=== PATIENT | male | born 1950 | race Caucasian/White ===

== ENCOUNTER 2020-12-13 17:43 | Inpatient (IN) ==
--- OUTSIDE RECORDS SUMMARY | 2020-12-13 17:45 | External Medical Summary | Continuity of Care Document ---
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 , M.D. Refills: 0 Depakote 500 MG Oral Tablet Delayed Release; TAKE 2 TABLETS AT BEDTIME. , M.D. Refills: 0 Losartan Potassium 25 MG Oral Tablet; TAKE 1 TABLET DAILY. , M.D. Refills: 0 Ventolin HFA 108 (90 Base) MCG/ACT Inhal ation Aerosol Solution; INHALE 2 PUFFS EVERY 4 HOURS NEEDED , M.D. 18 GM Inhaler Quantity: 1 Refills: 5 Ipratropium-Albuterol 0.5-2.5 (3) MG/3ML Inhalation Solution; USE 1 UNIT DOSE IN NEBULIZER 4 TIMES DAILY. ORQUIDEA Reyez Start: 25-Feb-2016 Quantity: 1 3 ML Plas Cont (60 P las Conts) Refills: 5 predniSONE 10 MG Oral Tablet; 24 day taper, take as di rected #54 ORQUIDEA Reyez Start: 25-Feb-2016 Quantity: 54 Refills: 0 Procedures History of Shoulder Surgery Status: Comp leted History of Cholecystectomy Status: Compl eted History of Prostatectomy Radical Status: Completed Immunizations Immunizations not documented Family History Father Family history of malignant neoplasm of prostate (V16. 42) (Z80.42) Status: Active Social History - Smoking Status Ex-smoker Plan of Treatment Planned Observations Planned Goals not documented Results No Known Results Results not documented
--- OUTSIDE RECORDS SUMMARY | 2020-12-13 17:45 | External Medical Summary | Continuity of Care Document ---
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 , M.D. Refills: 0 Depakote 500 MG Oral Tablet Delayed Release; TAKE 2 TABLETS AT BEDTIME. , M.D. Refills: 0 Losartan Potassium 25 MG Oral Tablet; TAKE 1 TABLET DAILY. , M.D. Refills: 0 Procedures History of Shoulder Surgery [...]
[2020-12-13] MEDS ORDERED: ONDANSETRON INJ 2 MG/ML 2 ML VIAL IV STA (18:25)
[2020-12-13] MEDS ORDERED: DEXAMETHASONE SOD INJ 10 MG/ML VIAL IV ONE (18:26)
[2020-12-13] MEDS: HYDROmorphone INJ 0.5 MG/0.5 ML SYR IV PRN ×2 (18:35→21:31)
[2020-12-13 18:45] LABS: Basophils # (auto) 0.02 K/uL (0-0.2); Basophils % (auto) 0.1 %; Eosinophils # (auto) 0.06 K/uL (0-0.5); Eosinophils % (auto) 0.4 %; Hematocrit (blood only) 47.7 % (42-52); Hemoglobin 16.7 g/dL (14.0-18.0); Immature Granulocytes # (auto) 0.14 K/uL (0.00-0.02); Lymphocytes # (auto) 2.93 K/uL (1.2-3.4); Lymphocytes % (auto) 20.2 %; Mean Corpuscular Hemoglobin 31.3 pg (25-34); Mean Corpuscular Volume 89.3 fL (80-100); Mean Platelet Volume 9.9 fL (7.4-10.4); Monocytes # (auto) 1.27 K/uL (0.11-0.59); Monocytes % (auto) 8.7 %; Neutrophils % (auto) 69.6 %; Platelet Count 430 K/uL (130-400); RDW Coefficient of Variation 13.2 % (11.5-14.5); Red Blood Count 5.34 M/uL (4.7-6.1); White Blood Count 14.52 K/uL (4.8-10.8)
--- NOTE | 2020-12-13 19:27 | Emergency Department Note ---
Impression & Plan Intractable back pain, Sciatica of right side ED Provider Note INFORMANT: Patient ED PROVIDER(S): Ren Rivera MD CHIEF COMPLAINT: Low back and right leg pain PLAN: Disposition: Admitted Condition: Good Outpatient prescription management: none Referral: None MEDICAL DECISION MAKING: Patient has a known history of a significant L4-L5 disc. Unfortunately despite pain management, injection, and steroids he is getting worse. He is having significant difficulty walking and has right leg weakness. He was given IV Dilaudid and Zofran and felt much better with this. Consultation was made with his orthopedic spine team. They asked for him to be admitted medically and will see him for probable surgery tomorrow. Patient has mild leukocytosis on CBC which is likely from the steroids. The chemistry panel was unremarkable. Consultation was made with the hospitalist service. Case was discussed with Dr. Jarrell Bledsoe. Patient will be admitted for further management. Triage Nursing notes reviewed and agree them. Vital Signs: reviewed and remarkable for hypertension Differential diagnosis: Musculoskeletal, disc herniation, fracture, metastatic disease, cord compression, discitis, sciatica, cauda equina, infection, aortic disease, renal colic, gastrointestinal, as well as other pathologies. Diagnostics interpreted by me: Cardiac Monitoring: Cardiac monitoring ordered by me: The patient was placed on continuous cardiac monitoring and observed. It revealed a normal sinus rhythm at 90 beats per minute without ectopy or evidence of dysrhythmia. Imaging studies: Deferred after consultation with orthopedic spine. Consultation(s): Consultation was made with orthopedic spine, Frank Jones PA-C for Dr. Bobby. He is well aware of the patient and figured he would likely need hospitalization for treatment. He feels that tomorrow the patient will likely need surgery. He asked for the hospitalist to see the patient. HPI: The patient is a 70 year old male who presents to the Emergency Room with complaints of intractable low back pain. This started 2 weeks ago and is from lifting a case of water. The patient also notes the following associated symptoms, numbness in the right leg. The patient has been given a steroid injection and prednisone by his back surgeon for relieving factors. Current pain is rated as 6/10. Pain is 10 out of 10 with movement. He notes that his surgeon, Dr. Bobby felt that he may need an operation if the injection and steroids did not help. He contacted the office today and was directed to the ER. Pt denies LOC, headache, fevers, chills, diaphoresis, visual changes, neck pain, chest pain, breathing difficulties, nausea, vomiting, abdominal pain, melena, hematochezia, loss of bowel or bladder control, urinary symptoms, numbness, weakness, lymphadenopathy, rash, or other complaints. ROS: See above HPI for pertinent positives & negatives. A total of 10 systems reviewed and were otherwise negative. PAST MEDICAL HISTORY:See Below , hypertension, herniated L4-L5 disc. PAST SURGICAL HISTORY:See Below, FAMILY HISTORY:See Below SOCIAL HISTORY:See Below, HOME MEDICATIONS:See Below ALLERGIES:See Below VITALS:See Below PHYSICAL EXAMINATION: GENERAL: Awake, alert, very uncomfortable-appearing, in mild distress HENT: Normocephalic, atraumatic. Oropharynx unremarkable. EYES: Normal conjunctiva. Sclera non-icteric. NECK: Inspection normal. Non-tender. Supple. No nuchal rigidity. FROM. No masses. RESPIRATORY: Clear to auscultation. No wheezes. No rales. Normal respiratory effort. CARDIAC: Normal rate. Normal rhythm. No murmurs. No rubs. Extremities warm and well perfused. Pulses equal. No JVD. GI: Soft, non-distended. No tenderness to palpation. No rebound or guarding. No masses. RECTAL: Deferred. MUSCULOSKELETAL: Atraumatic. Chest examination reveals no tenderness. The back is symmetrical on inspection without obvious abnormality. There is no CVA tenderness to palpation. No joint edema. There is right sciatic notch tenderness to palpation. Positive bilateral straight leg raise. LOWER EXTREMITIES: Calves are equal size bilaterally and non-tender. No edema. No discoloration. NEURO: Normal sensorium. Mild weakness noted in the right leg with decreased sensation subjectively to the thigh and lateral aspect of the right leg. No saddle anesthesia. No other sensory or motor deficits noted. SKIN: No rash or jaundice noted. Ren Rivera MD Past Med/Surg History Social History Smoking Status: Former smoker Feels Safe at Home: Yes Allergies Allergies Allergy/AdvReac Type Severity Reaction Status Date / Time latex Allergy Intermediate BLISTERS Verified 12/13/20 20:37 Home Meds Home Medications Medication Instructions Recorded Confirmed albuterol sulfate 2 puff INHALATION QID PRN 12/13/20 12/13/20 allopurinol 100 mg PO DAILY 12/13/20 12/13/20 azathioprine 50 mg PO DAILY 12/13/20 12/13/20 cyclobenzaprine 5 mg PO BID PRN 12/13/20 12/13/20 fluoxetine 20 mg PO DAILY 12/13/20 12/13/20 ipratropium-albuterol [Combivent 1 puff INHALATION BID 12/13/20 12/13/20 Respimat] losartan 25 mg PO DAILY 12/13/20 12/13/20 methylprednisolone 0 mg PO .UD 12/13/20 12/13/20 pravastatin 40 mg PO DAILY 12/13/20 12/13/20 prednisone 10 mg PO DAILY 12/13/20 12/13/20 topiramate 25 mg PO DAILY 12/13/20 12/13/20 umeclidinium-vilanterol [Anoro 1 inh INHALATION DAILY 12/13/20 12/13/20 Ellipta] Results & Data (ED) Vital Signs Vital Signs - 24 hr 12/13/20 17:56 12/13/20 18:46 12/13/20 18:48 Temperature 36.4 C L Temperature Source Temporal Artery Scan Pulse Rate 89 81 80 Pulse Rate from SpO2 Sensor 82 80 Respiratory Rate 18 Respiratory Effort / Characteristics Non-Labored Spontaneous Respiratory Depth Normal Blood Pressure 151/96 H 171/99 H Blood Pressure Mean 114 123 Blood Pressure Position Sitting Pulse Oximetry 95 94 95 Oxygen Delivery Method Room Air Sepsis Recent Fever Within 48 Hours No Sepsis New/Unexplained Change in Mental Status No Sepsis Action Taken by Nursing No Action Required 12/13/20 19:00 12/13/20 19:30 12/13/20 19:31 Temperature Temperature Source Pulse Rate 82 78 77 Pulse Rate from SpO2 Sensor 82 78 77 Respiratory Rate 20 18 20 Respiratory Effort / Characteristics Respiratory Depth Blood Pressure 148/89 H 179/102 H Blood Pressure Mean 115 130 Blood Pressure Position Pulse Oximetry 94 94 94 Oxygen Delivery Method Sepsis Recent Fever Within 48 Hours Sepsis New/Unexplained Change in Mental Status Sepsis Action Taken by Nursing 12/13/20 20:00 12/13/20 20:01 12/13/20 20:30 Temperature Temperature Source Pulse Rate 86 80 90 Pulse Rate from SpO2 Sensor 86 79 90 Respiratory Rate 18 20 22 Respiratory Effort / Characteristics Respiratory Depth Blood Pressure 166/98 H 170/126 H Blood Pressure Mean 118 139 Blood Pressure Position Pulse Oximetry 94 94 93 Oxygen Delivery Method Sepsis Recent Fever Within 48 Hours Sepsis New/Unexplained Change in Mental Status Sepsis Action Taken by Nursing Laboratory Data Result diagrams: 12/13/20 18:36 12/13/20 18:36 Lab Results 12/13/20 12/13/20 12/13/20 Range/Units 18:36 18:36 19:13 WBC 14.52 H (4.8-10.8) K/uL RBC 5.34 (4.7-6.1) M/uL Hgb 16.7 (14.0-18.0) g/dL Hct 47.7 (42-52) % MCV 89.3 (80-100) fL MCH 31.3 (25-34) pg MCHC 35.0 (32-36) g/dL RDW Std Deviation 43.0 (36.4-46.3) fL RDW Coeff of Megan 13.2 (11.5-14.5) % Plt Count 430 H (130-400) K/uL MPV 9.9 (7.4-10.4) fL Immature Gran % (Auto) 1.0 % Neut % (Auto) 69.6 % Lymph % (Auto) 20.2 % [place] % (Auto) 8.7 % Eos % (Auto) 0.4 % Baso % (Auto) 0.1 % Neut # (Auto) 10.10 H (1.4-6.5) K/uL Lymph # (Auto) 2.93 (1.2-3.4) K/uL [place] # (Auto) 1.27 H (0.11-0.59) K/uL Eos # (Auto) 0.06 (0-0.5) K/uL Baso # (Auto) 0.02 (0-0.2) K/uL Immature Gran # (Auto) 0.14 H (0.00-0.02) K/uL Sodium 134 L (136-145) mmol/L Potassium 4.6 (3.5-5.1) mmol/L Chloride 101 (98-107) mmol/L Carbon Dioxide 26 (21-32) mmol/L Anion Gap 6.0 (3-11) BUN 31 H (7-18) mg/dl Creatinine 1.08 (0.6-1.4) mg/dl Est Cr Clr Drug Dosing Not Reportable Est GFR ( Amer) 80.7 Est GFR (Non-Af Amer) 69.7 BUN/Creatinine Ratio 29.0 H (10-20) Glucose 182 H (70-99) mg/dl Calcium 9.2 (8.5-10.1) mg/dl Total Bilirubin 0.4 (0.2-1) mg/dl AST 24 (15-37) U/L ALT 63 (12-78) U/L Alkaline Phosphatase 92 (45-117) U/L Total Protein 8.2 (6.4-8.2) gm/dl Albumin 3.9 (3.4-5.0) gm/dl Globulin 4.3 H (2.5-4.0) gm/dl Albumin/Globulin Ratio 0.9 (0.9-2) COVID-19 Eval [facility] SARS-CoV-2, RNA, NAAT (NEGATIVE) 12/13/20 Range/Units 19:13 WBC (4.8-10.8) K/uL RBC (4.7-6.1) M/uL Hgb (14.0-18.0) g/dL Hct (42-52) % MCV (80-100) fL MCH (25-34) pg MCHC (32-36) g/dL RDW Std Deviation (36.4-46.3) fL RDW Coeff of Megan (11.5-14.5) % Plt Count (130-400) K/uL MPV (7.4-10.4) fL Immature Gran % (Auto) % Neut % (Auto) % Lymph % (Auto) % [place] % (Auto) % Eos % (Auto) % Baso % (Auto) % Neut # (Auto) (1.4-6.5) K/uL Lymph # (Auto) (1.2-3.4) K/uL [place] # (Auto) (0.11-0.59) K/uL Eos # (Auto) (0-0.5) K/uL Baso # (Auto) (0-0.2) K/uL Immature Gran # (Auto) (0.00-0.02) K/uL Sodium (136-145) mmol/L Potassium (3.5-5.1) mmol/L Chloride (98-107) mmol/L Carbon Dioxide (21-32) mmol/L Anion Gap (3-11) BUN (7-18) mg/dl Creatinine (0.6-1.4) mg/dl Est Cr Clr Drug Dosing Est GFR ( Amer) Est GFR (Non-Af Amer) BUN/Creatinine Ratio (10-20) Glucose (70-99) mg/dl Calcium (8.5-10.1) mg/dl Total Bilirubin (0.2-1) mg/dl AST (15-37) U/L ALT (12-78) U/L Alkaline Phosphatase (45-117) U/L Total Protein (6.4-8.2) gm/dl Albumin (3.4-5.0) gm/dl Globulin (2.5-4.0) gm/dl Albumin/Globulin Ratio (0.9-2) COVID-19 Eval Order SARS-CoV-2, RNA, NAAT NEGATIVE (NEGATIVE) Administered Medications Hydromorphone HCl (Hydromorphone Inj 0.5 Mg/0.5 Ml Syr) 0.5 mg IV Q15M PRN PRN Reason: Pain Stop: 12/27/20 18:24 Last Admin: 12/13/20 18:35 Dose: 0.5 mg Documented by: [id number] Discontinued Medications Dexamethasone (Dexamethasone Sod Inj 10 Mg/Ml Vial) 10 mg IV NOW ONE Stop: 12/13/20 18:27 Last Admin: 12/13/20 18:47 Dose: 10 mg Documented by: [id number] Ondansetron HCl (Ondansetron Inj 2 Mg/Ml 2 Ml Vial) 4 mg IV NOW STA Stop: 12/13/20 18:26 Last Admin: 12/13/20 18:35 Dose: 4 mg Documented by: [id number] Discharge Plan Visit Data Chief Complaint: Leg Injury/Pain Stated Complaint: PAIN AND NUMBNESS IN BACK/LEG ED Provider: Ren Rivera Discharge Problem: Intractable back pain, Sciatica of right side Discharge Instructions Krames/Other Patient Handouts: 2019-nCoV Forms Stand Alone Forms: My [employer] Prescriptions Prescriptions: No Action cyclobenzaprine 5 mg tablet 5 mg PO BID PRN (Reason: Spasms) RF: 0 Anoro Ellipta 62.5-25 mcg/actuation blister with device 1 inh INHALATION DAILY RF: 0 Combivent Respimat 20-100 mcg/actuation mist 1 puff INHALATION BID RF: 0 azathioprine 50 mg tablet 50 mg PO DAILY RF: 0 albuterol sulfate 90 mcg/actuation Hfa Aerosol Inhaler 2 puff INHALATION QID PRN (Reason: Shortness Of Breath Or Wheezing) RF: 0 fluoxetine 20 mg capsule 20 mg PO DAILY RF: 0 losartan 25 mg tablet 25 mg PO DAILY RF: 0 allopurinol 100 mg tablet 100 mg PO DAILY RF: 0 prednisone 10 mg tablet 10 mg PO DAILY RF: 0 topiramate 25 mg tablet 25 mg PO DAILY RF: 0 methylprednisolone 4 mg tablets,dose pack 0 mg PO .UD RF: 0 pravastatin 40 mg tablet 40 mg PO DAILY RF: 0 Referrals Referrals: Adelfo Pollard MD [Primary Care Provider] -
[2020-12-13 19:42] LABS: Alanine Aminotransferase 63 U/L (12-78); Albumin Globulin Ratio 0.9 (0.9-2); Albumin Level 3.9 gm/dl (3.4-5.0); Alkaline Phosphatase 92 U/L (45-117); Aspartate Aminotransferase 24 U/L (15-37); Bilirubin,Total 0.4 mg/dl (0.2-1); Blood Urea Nitrogen 31 mg/dl (7-18); Calcium 9.2 mg/dl (8.5-10.1); Carbon Dioxide 26 mmol/L (21-32); Chloride 101 mmol/L (98-107); Est GFR (African American) 80.7; Est GFR (Non-African American) 69.7; Globulin 4.3 gm/dl (2.5-4.0); Glucose 182 mg/dl (70-99); Potassium 4.6 mmol/L (3.5-5.1); Sodium 134 mmol/L (136-145); Total Protein 8.2 gm/dl (6.4-8.2)
--- NOTE | 2020-12-13 20:00 | History & Physical Report ---
Date of Service December 13, 2020 Assessment & Plan (1) Sciatica of right side: Patient be admitted to the hospital. We will proceed as follows: Patient does not have any red flag signs such as saddle anesthesia, bowel or bladder incontinence, foot drop, or weight loss. Patient notes he had spine imaging at [facility] Dr. Bobby is in possession of these images. We will consult Dr. Bobby for further recommendations. Will not pursue additional imaging until Dr. Bobby evaluates the patient. I will continue Decadron 4 mg IV every 6 hours We will provide analgesics and antiemetics In the event that the patient is a surgical candidate I will get an EKG as well as a chest x-ray for preoperative planning We will use SCDs for DVT prevention. We will hold on any chemical means until evaluated by the spine service This man notes that the event of cardiopulmonary rest will be a level 1 full code History of Present Illness Chief Complaint: I have pain in my right leg Primary Care Provider: Adelfo Pollard MD This is a 70-year-old male who presented to [facility] emergency department at the recommendation of his spine surgeon. Patient notes that approximately 2 weeks ago he went to lift something up. He said that it was not observantly heavy but almost immediately after lifting up an object he felt a burning pain down his right leg. He notes that he had an MRI of his spine performed at [facility] which has been reviewed by his orthopedic spine surgeon at [facility]. Approximate 5 days ago they gave him a spine injection which did not help and he was told that he may need surgery. As his pain has not been getting any better he was referred to the emergency department. The patient denies any fevers, shakes, chills, or night sweats. He denies weight loss. He denies any loss of bowel or bladder function. He denies any saddle anesthesia. He says with his day-to-day life when he is feeling well he is somewhat active. He denies chest pain with his daily activities but notes he does have chronic dyspnea on exertion related to sarcoidosis. He notes his sarcoidosis is followed by physician at [facility]. He has not had any recent falls or head injuries. He is not diabetic. In the emergency department a CBC revealed a white blood cell count of 14.2. Hemoglobin and hematocrit were in the normal range. Platelet count was elevated at 430,000. Chemistry profile showed sodium was 134 potassium was within the normal range. His creatinine was normal at 1.0. Covid test was performed and was noted to be negative. The treating emergency room physician has given 10 mg of IV Decadron and 0.5 mg of Dilaudid which has provided some relief. At the time of my exam patient was in no distress. Allergies Allergy/AdvReac Type Severity Reaction Status Date / Time latex Allergy Intermediate BLISTERS Verified 12/13/20 20:37 Home Medications Medication Instructions Recorded Confirmed Type albuterol sulfate 2 puff INHALATION QID PRN 12/13/20 12/13/20 History allopurinol 100 mg PO DAILY 12/13/20 12/13/20 History azathioprine 50 mg PO DAILY 12/13/20 12/13/20 History cyclobenzaprine 5 mg PO BID PRN 12/13/20 12/13/20 History fluoxetine 20 mg PO DAILY 12/13/20 12/13/20 History ipratropium-albuterol [Combivent 1 puff INHALATION BID 12/13/20 12/13/20 History Respimat] losartan 25 mg PO DAILY 12/13/20 12/13/20 History methylprednisolone 0 mg PO .UD 12/13/20 12/13/20 History pravastatin 40 mg PO DAILY 12/13/20 12/13/20 History prednisone 10 mg PO DAILY 12/13/20 12/13/20 History topiramate 25 mg PO DAILY 12/13/20 12/13/20 History umeclidinium-vilanterol [Anoro 1 inh INHALATION DAILY 12/13/20 12/13/20 History Ellipta] Past Med/Surg History Medical History (Updated 12/14/20 @ 08:36 by Eriberto May MD) Chronic dyspnea HLD (hyperlipidemia) Obesity Sarcoidosis of lung Social History Smoking Status: Former smoker Tobacco Cessation Education Requested by Patient: No Hx Alcohol Use: Yes Alcohol type: beer Hx Substance Use: No Preferred Language: Cambodian Communication Ability: Effective Park Keeper Required: No Beliefs That Will Affect Care: None Current Living Situation: Spouse Other Information That Helps Us Care for You: No Feels Safe at Home: Yes Safety Concerns: Feels Safe At This Time Assistive Devices: Cane Review of Systems Constitutional: no fever, no chills, no sweats and no weight loss Eyes: no diplopia Ear, Nose, Mouth, Throat: no ear pain Respiratory: + dyspnea on exertion (Chronic condition); no cough Cardiovascular: no chest pain and no palpitations Gastrointestinal: no abdominal pain, no nausea and no vomiting Genitourinary: no dysuria Musculoskeletal: + back pain and + radicular pain (Right leg) Integumentary: no rash Neurologic: + radiating pain (Right leg); no gait abnormality, no unsteadiness and no localized weakness Physical Exam Constitutional: well developed and well nourished; no acute distress Eyes: PERRL; no conjunctival abnormality ENMT: Ears: no hearing impairment Neck: trachea midline Respiratory: normal respiratory effort; no respiratory distress and no labored breathing Cardiovascular: Rate/Rhythm: regular rate and regular rhythm Gastrointestinal (Abdomen): Percussion/Palpation: abdomen soft; abdomen nontender Well-healed midline incision noted. A ventral hernia is noted. There is no pain with palpation Musculoskeletal: No gross orthopedic abnormalities are noted. No calf tenderness. Skin: normal turgor Neurologic: CN's II-XI intact bilaterally and moves all extremities The patient had 5+ strength bilaterally with dorsiflexion, plantar flexion, and great toe extension. He had intact sensation to sharp and light touch in all dermatomes in his extremities. He was able to lift both legs off the bed without difficulty. Psychiatric: A+Ox3, euthymic affect Results & Data Results & Data ([facility]) Vital Signs (Past 12 Hours) Vital Signs Temp Pulse Resp BP Pulse Ox 12/13/20 19:00 82 20 148/89 H 94 12/13/20 18:48 80 95 12/13/20 18:46 81 171/99 H 94 12/13/20 17:56 36.4 C L 89 18 151/96 H 95 Supervising Physician Co-Signing Physician Notes Attending addendum: I have physically seen this patient, have supervised the DEMI's activities, and agree with the H&P unless as otherwise noted. 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 Patient reportedly received an injection and oral treatments in the outpatient setting without significant improvement. Decadron 4 mg IV every [address] Bobby, orthopedic spine surgery COPD/sarcoidosis- Continue Breo Ellipta and albuterol HFA as needed Seizure disorder- Continue Depakote. Check a level Hypertension- Hold losartan for now. Remaining orders and notations as noted PG Care Time/CCT Total # of Minutes Spent Total Time Spent with Patient: Total time spent is greater than 50% in coordination of care (as documented) at patient's floor/unit and/or counseling patient: Coding Level of Care Code 82456 Initial Inpt Care Lvl 3 Diagnoses Sciatica of right side M54.31
[2020-12-13] MEDS ORDERED: ONDANSETRON INJ 2 MG/ML 2 ML VIAL IV PRN (22:03)
[2020-12-13] MEDS: ACETAMINOPHEN 1,000 MG/100 ML VIAL IV SCH (22:44)
[2020-12-13] MEDS: dexAMETHasone 4 MG in SYRINGE 0 ML IV SCH (23:17)
[2020-12-14] MEDS: MoRPHine SULFATE 4 MG/ML 1 ML CARP\\VIAL IV PRN ×3 (00:38→21:07)
[2020-12-14] MEDS: ACETAMINOPHEN 1,000 MG/100 ML VIAL IV SCH ×3 (05:49→21:07)
[2020-12-14] MEDS: dexAMETHasone 4 MG in SYRINGE 0 ML IV SCH (06:06)
--- NOTE | 2020-12-14 07:56 | XRay Report ---
XR chest 1V portable HISTORY: pre-op COMPARISON: Chest 08/21/2016. FINDINGS: No pneumothorax. No pleural effusions. The heart is mildly enlarged. There are a few bibasi lar linear densities consistent with subsegmental atelectasis. There is volume loss within the right hemithorax with suture material in the right lower lung zone. This favors postoperative change. There is mild elevation of the right hemidiaphragm. Prominence of the interstitial markings which may be c hronic. No evidence for pulmonary edema. IMPRESSION: 1. Mild cardiomegaly. 2. Mild diffuse interstitial thickening. This may be chronic. 3. Postoperative changes noted within the right hemithorax. ACT 112: Negative or not required by law. Electronically signed by: Isael Mcarthur M.D. 12/14/2020 7:55 AM
--- NOTE | 2020-12-14 08:17 | Orthopedic Consultation ---
Date of Consultation December 14, 2020 Assessment & Plan (1) Lumbar disc herniation with radiculopathy: Lengthy discussion with this patient this morning reviewing his MRI findings his neurologic decline. This point in recommending an urgent lumbar decompression fusion L4-5 and L5-S1 to address all neural compression and disc fragments. Risk benefits pros cons and alternatives were outlined in detail. At this time we will request medical evaluation and plan for OR in the a.m. Present on Admission?: Yes History of Present Illness Reason for Consultation: Right leg pain with weakness Attending Physician: Jarrell Bledsoe MD History of Present Illness This is a 70-year-old male presents with marked decline in status. He has severe right leg pain with weakness. It is compromised his ability to ambulate. He is unable to ascend or descend stairs reliably. He is undergone 1 epidural injection is provided a few hours of relief. He states he was able to sleep a few hours that evening. But the medicine has worn off and he is now I think short of miserable. Left lower extremity is asymptomatic at this time. Denies any loss of bowel bladder function. Allergies Allergy/AdvReac Type Severity Reaction Status Date / Time latex Allergy Intermediate BLISTERS Verified 12/13/20 20:37 Home Medications Medication Instructions Recorded Confirmed Type albuterol sulfate 2 puff INHALATION QID PRN 12/13/20 12/13/20 History allopurinol 100 mg PO DAILY 12/13/20 12/13/20 History azathioprine 50 mg PO DAILY 12/13/20 12/13/20 History cyclobenzaprine 5 mg PO BID PRN 12/13/20 12/13/20 History fluoxetine 20 mg PO DAILY 12/13/20 12/13/20 History ipratropium-albuterol [Combivent 1 puff INHALATION BID 12/13/20 12/13/20 History Respimat] losartan 25 mg PO DAILY 12/13/20 12/13/20 History methylprednisolone 0 mg PO .UD 12/13/20 12/13/20 History pravastatin 40 mg PO DAILY 12/13/20 12/13/20 History prednisone 10 mg PO DAILY 12/13/20 12/13/20 History topiramate 25 mg PO DAILY 12/13/20 12/13/20 History umeclidinium-vilanterol [Anoro 1 inh INHALATION DAILY 12/13/20 12/13/20 History Ellipta] Patient History Social History Smoking Status: Former smoker Tobacco Cessation Education Requested by Patient: No Hx Alcohol Use: Yes Alcohol type: beer Hx Substance Use: No Preferred Language: Turkmen Communication Ability: Effective 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 His significant straight leg raise signs on the right with contralateral signs on the left. He has reasonable plus out of 5 bilateral plantar flexion dorsiflexion but a 3+/5 right quadriceps compared to 5/5 on the left. Sensory is diminished on the right compared to the left cold sensation is symmetric. Results & Data ([facility]) Vital Signs (Past 12 Hours) Vital Signs Temp Pulse Pulse Resp BP BP BP 12/14/20 07:29 36.7 C 79 16 159/89 H 12/13/20 22:55 36.5 C 84 18 152/91 H 12/13/20 21:45 36.5 C 89 18 152/96 H 12/13/20 21:01 91 H 12/13/20 21:00 91 H 22 167/87 H 12/13/20 20:30 90 22 170/126 H Pulse Ox 12/14/20 07:29 95 12/13/20 22:55 92 12/13/20 21:45 94 12/13/20 21:01 93 12/13/20 21:00 93 12/13/20 20:30 93
--- NOTE | 2020-12-14 08:33 | Anesthesiology Consultation ---
Date of Service December 14, 2020 Assessment & Plan Chart Review Chart Review: Acceptable Risk for Surgery and Patient NOT seen in Pre Admission Testing Consults Requested none ASA ASA3 Proposed Anesthesia Anesthesia Type: General History Surgery Operation Date: 12/15/20 07:00 Proposed Procedures p L4-L5, L5-S1 Lumbar Decompression Fusion - Bhavesh Bobby DO Height/Weight Height: 6 ft Weight: 120.2 kg Allergies Allergy/AdvReac Type Severity Reaction Status Date / Time latex Allergy Intermediate BLISTERS Verified 12/13/20 20:37 Medications Home Medications Medication Instructions Recorded Confirmed Last Taken albuterol sulfate 2 puff INHALATION QID PRN 12/13/20 12/13/20 Unknown allopurinol 100 mg PO DAILY 12/13/20 12/13/20 Unknown azathioprine 50 mg PO DAILY 12/13/20 12/13/20 12/13/20 cyclobenzaprine 5 mg PO BID PRN 12/13/20 12/13/20 Unknown fluoxetine 20 mg PO DAILY 12/13/20 12/13/20 Unknown ipratropium-albuterol [Combivent 1 puff INHALATION BID 12/13/20 12/13/20 Unknown Respimat] losartan 25 mg PO DAILY 12/13/20 12/13/20 Unknown methylprednisolone 0 mg PO .UD 12/13/20 12/13/20 Unknown pravastatin 40 mg PO DAILY 12/13/20 12/13/20 Unknown prednisone 10 mg PO DAILY 12/13/20 12/13/20 Unknown topiramate 25 mg PO DAILY 12/13/20 12/13/20 Unknown umeclidinium-vilanterol [Anoro 1 inh INHALATION DAILY 12/13/20 12/13/20 Unknown Ellipta] Active Medications Generic Name Dose Route Start Last Admin Trade Name Freq PRN Reason Stop Dose Admin Acetaminophen 1,000 mg in 100 mls @ 400 mls/hr 12/13/20 22:03 12/14/20 06:05 Ofirmev IV 12/16/20 22:02 Infused Q8 SHIREEN Infusion Morphine Sulfate 3 mg 12/13/20 22:03 12/14/20 06:04 Morphine Sulfate 4 Mg/Ml 1 Ml Carp\Vial IV 12/27/20 22:02 3 mg Q3H PRN Administration Pain NPO Date Last Intake of Fluids: 12/13/20 Time Last Intake of Fluids: 23:59 Date Last Intake of Solids: 12/13/20 Time Last Intake of Solids: 23:59 Past Medical History Medical History (Updated 12/14/20 @ 08:36 by Eriberto May MD) Chronic dyspnea HLD (hyperlipidemia) Obesity Sarcoidosis of lung Exercise / Class Metabolic Activity III < 4 Walking/Shop/Light housework Past Anesthesia History No Hx of Anesthesia Complications and No Family Hx of Anesthesia Complications History of PONV No Hx of PONV and No Hx of Motion Sickness Social History Smoking Status: Former smoker Hx Alcohol Use: Yes Alcohol type: beer alcohol intake frequency: holidays/special occasions only Hx Substance Use: No Physical Exam Vital Signs Last Vital Signs Temp 36.7 C 12/14/20 07:29 Pulse 79 12/14/20 07:29 Resp 16 12/14/20 07:29 BP 159/89 H 12/14/20 07:29 Pulse Ox 95 12/14/20 07:29 Testing Laboratory Results 12/13/20 18:36 12/13/20 18:36 Electrocardiogram Date: 12/13/20 Findings: + NSR @ (at 76;low voltage qrs) Chest X-Ray Date: 12/13/20 Findings: + NAD and + cardiomegaly
--- NOTE | 2020-12-14 08:46 | Communication Note ---
Date of Service: December 14, 2020 Pt is RCRI Class I risk for intermediate risk procedure: urgent lumbar decompression fusion L4-5 and L5-S1 scheduled for tomorrow. Pt is medically optimized at this point. Will follow up with pt post-op. Resident Activity Tracking Resident Involvement: Resident Care Provided Care Provided: Adult [facility] Medicine
--- NOTE | 2020-12-14 09:04 | Hospitalist Progress Note ---
Date of Service December 14, 2020 Assessment & Plan (1) Lumbar disc herniation with radiculopathy: Parish Kerns is a 70 y/o M w/ hx of L4-L5 disc disease, sarcoidosis, and COPD who presents w/ exacerbation of R hip and sciatic type pain. R sciatica and lumbar radiculopathy - acute on chronic exacerbation, worsened x 1 month after lifting heavy case of water - spine injection ~5 days ago w/o lasting relief - symptoms described consistent w/ sciatica Patient does not have any red flag signs such as saddle anesthesia, bowel or bladder incontinence, foot drop, or weight loss. Patient notes he had spine imaging at [facility] Dr. Bobby is in possession of these images. These have been reviewed by Dr. Bobby, ortho, per his note. - ortho consulted. planning lumbar decompression fusion L4-5 and L5-S1 procedure on 12/15/20 Decadron IV provided in ED - provided home topiramate x1. currently held after midnight -IV morphine 3 mg q3hprn. zofran IV. IV tylenol 1000 mg q8h lana. NPO after midnight. sarcoidosis - home prednisone 10mg held COPD - home regimen currently held. stable HLD - provided home pravastatin x1. currently held after midnight HTN - provided dose of home losartan. currently held after midnight depression - provided home dose of fluoxetine x1. currently held after midnight FEN/GI: NPO DVT ppx: SCDs code: full dispo: med/surg (2) Sarcoidosis of lung: (3) Intractable back pain: (4) Sciatica of right side: (5) Obesity: (6) Chronic dyspnea: (7) HLD (hyperlipidemia): Admission and Anticipated Discharge Date Admission Date: December 13, 2020 Supervising Physician Co-Signing Physician Notes I personally examined the patient and verified all cornelius points of history and exam, discussed case, and agree with decision making with Dr Thomas. pain ok when sitting still tried to walk and it got bad vitals noted nad heent nc at mmm breathing unlabored no accessory muscles good effort skin no rashes no pallor or icterus lumbar radiculopathy - severe pain, significant disease on imaging -for OR tomorrow otherwise as above and as per Dr Olivier's communication note Subjective Additional hx obtained: wk before xmas, exacerbated by picking up heavy case of water. 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 had 2 chiropractic sessions, made pain worse. First wk of November. had epidural injection from Dr. Eagle ([facility]'s office) on 12/08/20, helped for a few days. Pain starts above R hip, sharp. radiates down lateral thigh. tightness, numbness/tingling, down to foot Pain stops above knee, but paresthesias go down to foot. The pain is constant, worse w/ standing, better w/ sitting. ibuprofen/tylenol not much relief. Currently, pain is a 5/10, when standing goes up to 10.. numbness is constant. needle sensation only when standing up. Sitting in bed. Review of Systems Review of Systems: Constitutional: Denies fever, chills, Eyes: Denies blurry vision, vision changes Cardiovascular: Denies chest pain, palpitations Respiratory: Denies new shortness of breath Gastrointestinal: Denies abdominal pain, nausea, vomiting, constipation, diarrhea Genitourinary: Denies urinary symptoms including dysuria no groin numbness/tingling. no incontinence Musculoskeletal: R leg feels weaker. Pain at hip and R lateral thigh. Neurological: Denies headache, dizziness Physical Exam Physical Exam: General: Grossly A&O. NAD. Cooperative. HEENT: Atraumatic, normocephalic. Pulm: CTAB. -wheezes, -rales, -rhonchi. No respiratory distress. Cardiac: RRR, -mrg. Abdominal: Nontender, nondistended, soft. MIdline abd scar (for diverticulitis) MSK 5+/5 strength upper extremities. Sensation intact. Pain w/ flexion/extension of R hip, LE strength exam at hip limited by pain. 5+/5 at feet. + R SLR, limited by pain at 10 degrees. Results & Data Results & Data ([facility]) Vital Signs (Past 12 Hours) Vital Signs Temp Pulse Pulse Resp BP BP BP 12/14/20 07:29 36.7 C 79 16 159/89 H 12/13/20 22:55 36.5 C 84 18 152/91 H 12/13/20 21:45 36.5 C 89 18 152/96 H 12/13/20 21:01 91 H 12/13/20 21:00 91 H 22 167/87 H Pulse Ox 12/14/20 07:29 95 12/13/20 22:55 92 12/13/20 21:45 94 12/13/20 21:01 93 12/13/20 21:00 93 Resident Activity Tracking Resident Involvement: Resident Care Provided Care Provided: Adult Hospital Medicine
[2020-12-14] MEDS ORDERED: TOPIRAMATE 25 MG TAB PO STA (17:37)
[2020-12-14] MEDS ORDERED: LOSARTAN POTASSIUM 25 MG TAB PO STA (17:37)
[2020-12-14] MEDS ORDERED: FLUoxetine HCL 20 MG CAP PO STA (17:37)
[2020-12-14] MEDS ORDERED: PRAVASTATIN SOD 40 MG TAB PO STA (17:37)
[2020-12-14] MEDS ORDERED: TOPIRAMATE 25 MG TAB PO SCH (17:40)
[2020-12-14] MEDS ORDERED: PRAVASTATIN SOD 40 MG TAB PO SCH (17:40)
[2020-12-14] MEDS ORDERED: LOSARTAN POTASSIUM 25 MG TAB PO SCH (17:45)
[2020-12-14] MEDS ORDERED: FLUoxetine HCL 20 MG CAP PO SCH (17:45)
--- NOTE | 2020-12-14 19:27 | Billing Data ---
Date of Service December 14, 2020 Coding Level of Care Code 49942 Subseq Hosp Care Lvl 2
--- NOTE | 2020-12-15 06:18 | Electrocardiogram Report ---
Test Reason : Blood Pressure : / mmHG Vent. Rate : 076 BPM Atrial Rate : 076 BPM P-R Int : 154 ms QRS Dur : 076 ms QT Int : 368 ms P-R-T Axes : 034 -14 049 degrees QTc Int : 414 ms Normal sinus rhythm Low voltage QRS Borderline ECG No previous ECGs available Confirmed by Roscoe Britt ([id number]) on 12/15/2020 6:17:41 AM Referred By: REFERRED SELF Confirmed By:Roscoe Britt
[2020-12-15] MEDS: ACETAMINOPHEN 1,000 MG/100 ML VIAL IV SCH ×3 (06:24→21:37)
--- NOTE | 2020-12-15 08:18 | Hospitalist Progress Note ---
Date of Service December 15, 2020 Assessment & Plan (1) Lumbar disc herniation with radiculopathy: Parish Kerns is a 70 y/o M w/ hx of L4-L5 disc disease, sarcoidosis, and COPD who presents w/ exacerbation of R hip and sciatic type pain. R sciatica and lumbar radiculopathy - acute on chronic exacerbation, worsened x 1 month after lifting heavy case of water - spine injection ~5 days ago w/o lasting relief - symptoms described consistent w/ sciatica Patient does not have any red flag signs such as saddle anesthesia, bowel or bladder incontinence, foot drop, or weight loss. Patient notes he had spine imaging at [facility] Dr. Bobby is in possession of these images. These have been reviewed by Dr. Bobby, ortho, per his note. Decadron IV provided in ED -12/14/19: IV morphine 3 mg q3hprn. zofran IV. IV tylenol 1000 mg q8h lana. NPO after midnight. -12/15/20 lumbar decompression fusion L4-5 and L5-S1 procedure performed by Dr. Bobby: #1 lumbar decompression bilateral medial facetectomies and foraminotomies L3-4, L4-5 L5-S1. #2 posterior spinal fusion L4-5 L5-S1 peer #3 placement posterior instrumentation L4-5 L5-S1. Before interbody fusion L4-5 #5 placed a peek cage 12 x 26 mm at L4-5. #6 placement of locally harvested morselized autograft in the posterior gutters per #7 placement infuse collagen sponge, master graft in the posterior gutters and ostial amp and interbody space. sarcoidosis - home azathioprine 50 mg PO daily, prednisone 10 mg PO daily restarted COPD - home Anoro Ellipta, Ventolin, and Atrovent restarted HLD - home pravastatin HTN - 12/15/20 home losartan held because received PRN labetalols after surgery. most recent BP 143/87 at time of writing depression - home fluoxetine FEN/GI: regular. LR 100/hr DVT ppx: SCDs code: full dispo: med/surg, possible dispo home 12/16 depending on surgery recovery (2) Sarcoidosis of lung: (3) Intractable back pain: (4) Sciatica of right side: (5) Obesity: (6) Chronic dyspnea: (7) HLD (hyperlipidemia): Admission and Anticipated Discharge Date Admission Date: December 13, 2020 Supervising Physician Co-Signing Physician Notes I personally examined the patient and verified all cornelius points of history and exam, discussed case, and agree with decision making with Dr Thomas. sleeping post op. no new problems. reportedly when he returned from OR he remarked at how he noted near immediate pain relief! vitals noted nad heent nc at mmm snoring while asleep lumbar radic - now stable post op. pain control, supportive care, PT/OT snoring - possible BOAZ - outpt w/u otherwise as above Subjective +Soreness at R hip. Some radiation of pain to groin if standing up. Symptoms/hip pain relatively unchanged from yesterday. No new complaints. Review of Systems Review of Systems: Constitutional: Denies fever, chills Cardiovascular: Denies chest pain Respiratory: Denies shortness of breath Gastrointestinal: Denies abdominal pain, nausea, vomiting, constipation, diarrhea Genitourinary: Denies urinary symptoms including dysuria. Denies groin numbness/tingling or incontinence Neurological: Denies headache Physical Exam Physical Exam: General: Grossly A&O. NAD. Cooperative. HEENT: Atraumatic, normocephalic. Pulm: CTAB. -wheezes, -rales, -rhonchi. No respiratory distress. Cardiac: RRR, -mrg. Abdominal: Nontender, nondistended, soft. Msk: Intact sensation of lower extremities. Exam of hip limited by pain at 10 degree flexion during SLR test. ROM/strength at foot 5+/5. No midline or paraspinal ttp. No ttp at R hip. Results & Data Results & Data ([facility]) Vital Signs (Past 12 Hours) Vital Signs Temp Pulse Resp BP Pulse Ox 12/15/20 07:34 36.4 C L 70 16 142/88 H 96 12/14/20 23:23 36.5 C 77 18 178/50 H 96 Resident Activity Tracking Resident Involvement: Resident Care Provided Care Provided: Adult Hospital Medicine
--- NOTE | 2020-12-15 08:57 | History & Physical Bridge Note ---
Date of Service December 15, 2020 History & Physical Bridge Note I have examined the patient, reviewed the History & Physical and in the interval since the performance of the History & Physical I have noted the following changes of clinical significance: no changes noted
[2020-12-15] MEDS ORDERED: fentaNYL citrate 100 MCG/2 ML VIAL ONE (09:10)
[2020-12-15] MEDS ORDERED: MIDAZOLAM HCL 1 MG/ML 2ML VIAL ONE (09:10)
[2020-12-15] MEDS ORDERED: METOCLOPRAMIDE HCL INJ 5 MG/ML 2 ML VIAL IV PRN ×2 (09:10→14:15)
[2020-12-15] MEDS ORDERED: ONDANSETRON INJ 2 MG/ML 2 ML VIAL IV PRN ×2 (09:10→14:15)
[2020-12-15] MEDS ORDERED: HYDROmorphone INJ 2 MG/ML SYR/VIAL IV PRN (09:10)
[2020-12-15] MEDS ORDERED: PROMETHAZINE HCL 12.5 MG in SODIUM CHLORIDE 0.9% 50 ML IV PRN ×2 (09:10→14:15)
[2020-12-15] MEDS ORDERED: ePHEDrine sulfate 50 MG/ML AMP IV PRN (09:10)
[2020-12-15] MEDS ORDERED: ATROPINE SULFATE 0.1 MG/ML 10ML SYR IV PRN (09:10)
[2020-12-15] MEDS ORDERED: BACITRACIN INJ 50,000 UNIT VIAL ONE (09:11)
[2020-12-15] MEDS ORDERED: BUPIVACAINE/EPINEPHRINE 0.5% MPF 1:200,000 30 ML VIAL ONE (09:11)
[2020-12-15] MEDS ORDERED: ROCURONIUM BROMIDE 10 MG/ML 5 ML VIAL IV ONE ×6 (09:46→11:08)
[2020-12-15] MEDS ORDERED: PROPOFOL IV EMULSION 10 MG/ML 20 ML VIAL IV ONE (09:46)
[2020-12-15] MEDS ORDERED: LIDOCAINE HCL 2% 2 ML VIAL/AMP(20MG/ML) INFIL ONE (09:46)
[2020-12-15] MEDS ORDERED: DEXAMETHASONE SOD INJ 4 MG/ML VIAL ONE (10:05)
[2020-12-15] MEDS ORDERED: ONDANSETRON INJ 2 MG/ML 2 ML VIAL ONE (10:05)
[2020-12-15] MEDS ORDERED: HYDROmorphone INJ 2 MG/ML SYR/VIAL ONE (10:07)
[2020-12-15] MEDS ORDERED: FLOSEAL HEMOSTATIC MATRIX 10ML TOP ONE (11:37)
--- NOTE | 2020-12-15 11:48 | Operative Report ---
Post Operative Report Pre & Post Diagnosis Operation Date: 12/15/20 11:10 Pre-Op Diagnosis: Lumbar degenerative disc disease with right lower extremity radiculopathy L4-S1 Post-Op Diagnosis: Lumbar degenerative disc disease with right lower extremity radiculopathy L4-S1 I identified the patient and participated in the time-out.: Yes Procedure Operation Date: 12/15/20 11:10 Actual Procedures #1 lumbar decompression bilateral medial facetectomies and foraminotomies L3-4, L4-5 L5-S1. #2 posterior spinal fusion L4-5 L5-S1 peer #3 placement posterior instrumentation L4-5 L5-S1. Before interbody fusion L4-5 #5 placed a peek cage 12 x 26 mm at L4-5. #6 placement of locally harvested morselized autograft in the posterior gutters per #7 placement infuse collagen sponge, master graft in the posterior gutters and ostial amp and interbody space. Surgeon Bhavesh Bobby, Asset Specialist Kailey Acevedo Estimated Blood Loss 250 Findings See Below The patient is 6 foot tall weighing over 120 kg with a BMI in excess of 35. The patient's body habitus did add significant technical difficulty requiring her deepest retractors longus instruments in order to perform his procedure. This had at least 50% increase to the operative time. Specimens None Indications This is a 70-year-old male who presents with decline in status with weakness and severe pain affecting his right lower extremity. Subsequent is here for urgent decompression fusion. Description of Procedure Patient met with identified informed consent obtained. Patient was then taken to the operative suite underwent an patient placed in a prone position on the Mesfin table on top of the Errol frame. All bony prominences well-padded eyes inspected to ensure no external pressure placed upon the. This point the lumbar spine was prepped and draped in normal sterile fashion. Sharp dissection with the assistance of Bovie cautery performed down to and exposing the lamina and transverse processes of L4-L5 and sacral ala bilaterally. From caudal cephalad fashion complete laminectomy of L5 L4 partial laminectomy of L3 was performed including bilateral medial facetectomies and foraminotomies addressing severe spinal stenosis and mass amount of disc material occupying the foramen L4-5 on the right. After this complete pedicle screws were placed in L4-L5 and S1 levels bilaterally with assistance of fluoroscopy the proper sized bijan placed. By way of a transforaminal portion right complete discectomy will 4 5 was performed endplates curetted to subcortical bleeding bone and a 12 x 26 mm peek cage filled osteobone graft tapped in position. The rods were then locked in final position bilaterally. The transverse processes of L4-L5 and sacral ala burred to subcortical bleeding bone. Infuse collagen sponge mass graft local autograft was placed in the posterior gutters. 15 round ALMA drain inserted. The incision was then closed with 1 Vicryl in the fascia 2-0 Vicryl subcutaneously and 4 Monocryl for final skin closure. Steri-Strip sterile dressings placed. Patient will continue PACU stable condition. Please note spinal cord monitoring was utilized at the procedure no changes noted. Lastly Kailey Acevedo was present at the entire surgery involved the patient positioning complex portions of the surgery and final skin closure. I attest to the content of the Intraoperative Record and any orders documented therein. Any exceptions are noted below.
[2020-12-15] MEDS ORDERED: GLYCOPYRROLATE 0.2 MG/ML VIAL ONE (12:10)
[2020-12-15] MEDS ORDERED: NEOSTIGMINE METHYLSULFATE 1 MG/ML 10ML VIAL ONE (12:10)
--- NOTE | 2020-12-15 12:12 | Fluoroscopy Report ---
INTRAOPERATIVE RADIOGRAPHS CLINICAL HISTORY: L4-S1 spinal fusion. Fluoroscopy time: 27 seconds. FINDINGS: 2 spot fluoroscopic views of the lumbar spine are presented. There has been discectomy at L 4-L5 with laminectomy and posterior fusion from L4-S1. Interpedicular screws are present at all level s. The orthopedic hardware appears intact. IMPRESSION: Intraoperative images from L4-S1 spinal fusion as above. Electronically signed by: Jose Lauren M.D. 12/15/2020 12:11 PM
[2020-12-15] MEDS: fentaNYL citrate 100 MCG/2 ML VIAL IV PRN ×5 (12:34→12:52)
[2020-12-15] MEDS ORDERED: LABETALOL HCL IV 5 MG/ML 20ML IV ONE (13:09)
[2020-12-15] MEDS: LABETALOL HCL IV 5 MG/ML 20ML IV PRN ×2 (13:12→13:37)
--- NOTE | 2020-12-15 13:53 | Anesthesiology Progress Note ---
Date of Service December 15, 2020 Anesthesia Post Procedure Vital Signs Vital Signs: Temp Pulse Resp BP BP Pulse Ox 12/15/20 13:35 36.9 C 77 17 124/101 H 94 12/15/20 13:25 36.9 C 74 11 L 125/96 95 12/15/20 13:15 36.6 C 75 16 103/87 94 12/15/20 13:05 36.6 C 86 18 141/105 H 96 12/15/20 12:55 36.6 C 92 H 14 141/105 H 92 12/15/20 12:45 36.6 C 75 10 L 141/105 H 95 12/15/20 12:35 77 16 162/98 H 95 12/15/20 12:25 73 13 168/102 H 96 12/15/20 12:15 36.5 C 76 13 165/93 H 95 12/15/20 09:19 36.4 C L 70 18 166/97 H 94 12/15/20 07:34 36.4 C L 70 16 142/88 H 96 12/14/20 23:23 36.5 C 77 18 178/50 H 96 12/14/20 18:03 87 16 159/87 H 94 12/14/20 16:07 36.5 C 86 18 160/87 H 93 Pain Intensity Back: Pain Intensity: 2 Transfer of Care Handoff Completed per policy Notes Mental Status: alert / awake / arousable and participated in evaluation Patient Amnestic to Procedure: Yes Nausea / Vomiting: adequately controlled Pain: adequately controlled Airway Patency, RR, SpO2: stable & adequate BP & HR: stable & adequate Hydration State: stable & adequate Anesthetic Complications: no major complications apparent
[2020-12-15] MEDS ORDERED: traMADol HCL 50 MG TABLET PO PRN (14:15)
[2020-12-15] MEDS ORDERED: ALUMINUM/MAGNESIUM SUSP 30 ML UDC PO PRN (14:15)
[2020-12-15] MEDS ORDERED: SOD PHOSPHATE/SOD BIPHOSPHATE ENEMA 132 ML BTL PR PRN (14:15)
[2020-12-15] MEDS ORDERED: diphenhydrAMINE Capsule 25 MG CAP PO PRN (14:15)
[2020-12-15] MEDS ORDERED: HYDROmorphone INJ 0.5 MG/0.5 ML SYR IV PRN (14:15)
[2020-12-15] MEDS ORDERED: ONDANSETRON 4 MG OD TAB PO PRN (14:15)
[2020-12-15] MEDS ORDERED: MAGNESIUM HYDROXIDE SUSP 30 ML UDC PO PRN (14:15)
[2020-12-15] MEDS ORDERED: ACETAMINOPHEN 500 MG TAB PO PRN (14:15)
[2020-12-15] MEDS ORDERED: LORazepam 0.5 MG TAB PO PRN (14:15)
[2020-12-15] MEDS ORDERED: hydrOXYzine HCl 25 MG TAB PO PRN (14:15)
[2020-12-15] MEDS ORDERED: ALBUTEROL HFA 8 GM INHALER INH PRN (14:15)
[2020-12-15] MEDS ORDERED: LORazepam 0.5 MG/1 ML VIAL IV PRN (14:15)
[2020-12-15] MEDS ORDERED: NALOXONE HCL 0.4 MG/1 ML VIAL/CARP IV PRN (14:15)
[2020-12-15] MEDS ORDERED: bisacodyL 10 MG SUPP PR PRN (14:15)
[2020-12-15] MEDS ORDERED: DO NOT ADMINISTER PNEUMOCOCCAL VACCINE PRN (14:15)
[2020-12-15] MEDS ORDERED: DO NOT ADMINISTER FLU VACCINE PRN (14:15)
[2020-12-15] MEDS ORDERED: FAMOTIDINE 20 MG TAB PO PRN (14:15)
[2020-12-15] MEDS ORDERED: ACETAMINOPHEN 1,000 MG/100 ML VIAL IV PRN (14:15)
[2020-12-15] MEDS ORDERED: HYDROmorphone INJ 1 MG/ML SYRINGE IV PRN (14:15)
[2020-12-15] MEDS: LACTATED RINGER'S 1,000 ML IV SCH (14:20)
[2020-12-15] MEDS: KETOROLAC TROMETHAMINE 15 MG/ML VIAL IV SCH ×2 (14:50→21:37)
[2020-12-15] MEDS: ceFAZolin 2000MG 2,000 MG/15 ML SYR IV SCH (16:04)
[2020-12-15] MEDS ORDERED: FLUoxetine HCL 20 MG CAP PO ONE (18:34)
[2020-12-15] MEDS ORDERED: TOPIRAMATE 25 MG TAB PO ONE (18:34)
[2020-12-15] MEDS ORDERED: PRAVASTATIN SOD 40 MG TAB PO ONE (18:35)
--- NOTE | 2020-12-15 19:03 | Billing Data ---
Date of Service December 15, 2020 Coding Level of Care Code 19687 Subseq Hosp Care Lvl 2
[2020-12-15] MEDS: Albuterol HFA 8 GM Inhaler (Combivent Respimat P&T Subs) INH SCH (19:17)
[2020-12-15] MEDS: Ipratropium HFA Inhaler (Combivent Respimat P&T Subs) INH SCH (19:18)
[2020-12-15] MEDS ORDERED: IPRATROPIUM BROMIDE/ALBUTEROL respimat INH INH SCH (21:00)
[2020-12-15] MEDS: DOCUSATE SODIUM/SENNA 50/8.6MG TAB PO SCH (21:37)
[2020-12-16] MEDS: LACTATED RINGER'S 1,000 ML IV SCH (00:09)
[2020-12-16] MEDS: ceFAZolin 2000MG 2,000 MG/15 ML SYR IV SCH (00:12)
[2020-12-16] MEDS ORDERED: COUGH DROP (SUGAR FREE) LOZ 24 LOZ/1 BOX BUCCAL ONE (00:17)
[2020-12-16] MEDS: KETOROLAC TROMETHAMINE 15 MG/ML VIAL IV SCH ×2 (02:47→09:32)
[2020-12-16] MEDS: POLYETHYLENE (MIRALAX) 17 GM PACK PO SCH ×3 (05:38→17:14)
[2020-12-16] MEDS: ACETAMINOPHEN 1,000 MG/100 ML VIAL IV SCH ×3 (05:39→21:02)
[2020-12-16 07:07] LABS: Eosinophils # (auto) 0.02 K/uL (0-0.5); Eosinophils % (auto) 0.1 %; Hematocrit (blood only) 39.1 % (42-52); Hemoglobin 13.2 g/dL (14.0-18.0); Immature Granulocytes # (auto) 0.06 K/uL (0.00-0.02); Immature Granulocytes % (auto) 0.4 %; Lymphocytes # (auto) 2.78 K/uL (1.2-3.4); Lymphocytes % (auto) 17.1 %; Mean Corpuscular Hemoglobin 30.5 pg (25-34); Mean Corpuscular Hgb Conc 33.8 g/dL (32-36); Mean Corpuscular Volume 90.3 fL (80-100); Mean Platelet Volume 9.8 fL (7.4-10.4); Monocytes # (auto) 1.74 K/uL (0.11-0.59); Monocytes % (auto) 10.7 %; Neutrophils % (auto) 71.7 %; Platelet Count 350 K/uL (130-400); RDW Coefficient of Variation 13.5 % (11.5-14.5); RDW Standard Deviation 44.8 fL (36.4-46.3); Red Blood Count 4.33 M/uL (4.7-6.1)
--- NOTE | 2020-12-16 07:12 | Hospitalist Progress Note ---
Date of Service December 16, 2020 Assessment & Plan (1) Lumbar disc herniation with radiculopathy: Parish Kerns is a 70 y/o M w/ hx of L4-L5 disc disease, sarcoidosis, and COPD who presents w/ exacerbation of R hip and sciatic type pain. POD1, appropriate. R sciatica and lumbar radiculopathy - acute on chronic exacerbation, worsened x 1 month after lifting heavy case of water - spine injection ~5 days ago w/o lasting relief - symptoms described consistent w/ sciatica Patient does not have any red flag signs such as saddle anesthesia, bowel or bladder incontinence, foot drop, or weight loss. Patient notes he had spine imaging at [facility] Dr. Bobby is in possession of these images. These have been reviewed by Dr. Bobby, ortho, per his note. Decadron IV provided in ED -12/14/19: IV morphine 3 mg q3hprn. zofran IV. IV tylenol 1000 mg q8h lana. NPO after midnight. -12/15/20 lumbar decompression fusion L4-5 and L5-S1 procedure performed by Dr. Bobby: #1 lumbar decompression bilateral medial facetectomies and foraminotomies L3-4, L4-5 L5-S1. #2 posterior spinal fusion L4-5 L5-S1 peer #3 placement posterior instrumentation L4-5 L5-S1. Before interbody fusion L4-5 #5 placed a peek cage 12 x 26 mm at L4-5. #6 placement of locally harvested morselized autograft in t he posterior gutters per #7 placement infuse collagen sponge, master graft in the posterior gutters and ostial amp and interbody space. -dexamethasone IV 8mg daily - oxycodone 5-10 q4hprn for pain control - physical therapy - monitor ALMA output sarcoidosis - home azathioprine 50 mg PO daily, prednisone 10 mg PO daily restarted COPD - home Anoro Ellipta, Ventolin, and Atrovent HLD - home pravastatin, will restart HTN - home losartan, will restart depression - home fluoxetine, will restart snoring - outpatient eval for sleep apnea FEN/GI: regular. LR 100/hr DVT ppx: SCDs code: full dispo: med/surg, possible dispo home 12/17 depending on surgery recovery (2) Sarcoidosis of lung: (3) Intractable back pain: (4) Sciatica of right side: (5) Obesity: (6) Chronic dyspnea: (7) HLD (hyperlipidemia): Admission and Anticipated Discharge Date Admission Date: December 13, 2020 Supervising Physician Co-Signing Physician Notes I personally examined the patient and verified all cornelius points of history and exam, discussed case, and agree with decision making with Dr Thomas. really happy with progress, walking in halls, pain better. notes that he had a sleep study years ago but not recently. no boaz then but thinks it could easily be possible vitals noted nad heent nc at mmm walking w walker no gait abnormalities. ALMA drain w serosanguanous output lumbar radic - doing well post op. pain control, supportive care, PT/OT snoring - possible BOAZ - outpt w/u - sleep study in near but not emergent future otherwise as above Subjective Radiculopathy symptoms resolved after the surgery. Mild surgical site pain 01/05. + throat soreness. Receiving biotene spray. Tolerating regular diet. No BM, no flatus. + burping. Morton draining yellow urine, nonbloody. Review of Systems Review of Systems: Constitutional: Denies fever, chills Eyes: Denies blurry vision, vision changes ENT: + sore throat Cardiovascular: Denies chest pain, palpitations Respiratory: Denies shortness of breath Gastrointestinal: Denies abdominal pain, nausea, vomiting, constipation, diarrhea Genitourinary: Has morton. Musculoskeletal: Denies weakness, muscle aches/pain, joint aches/pain Neurological: Denies headache, numbness, tingling, focal weakness Physical Exam Physical Exam: General: Grossly A&O. NAD. Cooperative. HEENT: Atraumatic, normocephalic. Pulm: CTAB. -wheezes, -rales, -rhonchi. No respiratory distress. Cardiac: RRR, -mrg. Abdominal: Nontender, nondistended, soft. Neuro. Moving lower extremities. Normal sensation of lower extremities. Back: lumbar area is bandaged, c/d/i Results & Data Results & Data ([facility]) Vital Signs (Past 12 Hours) Vital Signs Temp Pulse Resp BP Pulse Ox 12/16/20 07:08 37.0 C 79 16 149/89 H 95 12/15/20 22:57 36.6 C 74 16 152/77 H 92 12/15/20 19:18 78 18 93 Resident Activity Tracking Resident Involvement: Resident Care Provided Care Provided: Adult Hospital Medicine
[2020-12-16] MEDS: Albuterol HFA 8 GM Inhaler (Combivent Respimat P&T Subs) INH SCH ×2 (07:20→21:19)
[2020-12-16] MEDS: Ipratropium HFA Inhaler (Combivent Respimat P&T Subs) INH SCH ×2 (07:20→21:20)
[2020-12-16 07:32] LABS: BUN Creatinine Ratio 28.8 (10-20)
[2020-12-16 07:33] LABS: Calcium 8.3 mg/dl (8.5-10.1); Creatinine Clr Calc Pharmacy 74.7 ml/min; Est GFR (African American) 67.7; Est GFR (Non-African American) 58.4; Potassium 4.1 mmol/L (3.5-5.1)
--- NOTE | 2020-12-16 08:49 | Orthopedic Progress Note ---
Date of Service December 16, 2020 Assessment & Plan (1) Sciatica of right side: Admission and Anticipated Discharge Date Admission Date: December 13, 2020 This time initiate physical therapy monitor his ALMA output consider discharge home the next few days. Subjective Back pain controlled leg symptoms markedly improved. Physical Exam Physical Exam: Patient is comfortable is good strength testing. Results & Data ([facility]) Vital Signs (Past 12 Hours) Vital Signs Temp Pulse Resp BP Pulse Ox 12/16/20 07:26 77 16 93 12/16/20 07:08 37.0 C 79 16 149/89 H 95 12/15/20 22:57 36.6 C 74 16 152/77 H 92
[2020-12-16] MEDS ORDERED: predniSONE 10 MG TABLET PO SCH (09:00)
[2020-12-16] MEDS: oxyCODONE HCL IR 5 MG TAB (IMMEDIATE RELEASE) PO PRN ×3 (09:24→21:01)
[2020-12-16] MEDS: azaTHIOprine 50 MG TAB PO SCH (09:25)
[2020-12-16] MEDS: DEXAMETHASONE SOD PHOSPHATE 8 MG in SYRINGE 0 ML IV SCH (09:26)
[2020-12-16] MEDS: allopurinoL 100 MG TAB PO SCH (09:26)
[2020-12-16] MEDS: UMECLIDINIUM/VILANTEROL 62.5/25MCG 7 PUFFS/INHALER INH SCH (09:29)
--- NOTE | 2020-12-16 18:55 | Billing Data ---
Date of Service December 16, 2020 Coding Level of Care Code 00076 Subseq Hosp Care Lvl 2
[2020-12-16] MEDS: DOCUSATE SODIUM/SENNA 50/8.6MG TAB PO SCH (21:01)
[2020-12-17] MEDS: POLYETHYLENE (MIRALAX) 17 GM PACK PO SCH ×4 (00:11→17:24)
[2020-12-17] MEDS: oxyCODONE HCL IR 5 MG TAB (IMMEDIATE RELEASE) PO PRN ×3 (04:05→21:14)
[2020-12-17 06:04] LABS: Hematocrit (blood only) 40.8 % (42-52); Mean Corpuscular Hemoglobin 30.5 pg (25-34); Mean Corpuscular Hgb Conc 34.3 g/dL (32-36); Mean Corpuscular Volume 88.9 fL (80-100); Nucleated RBC # (auto) 0.02 K/uL (0-0); Nucleated RBC % (auto) 0.1 %; Platelet Count 367 K/uL (130-400); RDW Coefficient of Variation 13.3 % (11.5-14.5); RDW Standard Deviation 43.2 fL (36.4-46.3); Red Blood Count 4.59 M/uL (4.7-6.1); White Blood Count 15.67 K/uL (4.8-10.8)
[2020-12-17] MEDS: Albuterol HFA 8 GM Inhaler (Combivent Respimat P&T Subs) INH SCH ×2 (07:33→19:46)
[2020-12-17] MEDS: Ipratropium HFA Inhaler (Combivent Respimat P&T Subs) INH SCH ×2 (07:33→19:46)
[2020-12-17 07:48] LABS: Glucose 162 mg/dl (70-99)
[2020-12-17 07:53] LABS: Carbon Dioxide 24 mmol/L (21-32); Chloride 100 mmol/L (98-107); Creatinine Clr Calc Pharmacy 88.9 ml/min; Est GFR (African American) 83.5; Est GFR (Non-African American) 72.1; Potassium 4.1 mmol/L (3.5-5.1); Sodium 132 mmol/L (136-145)
--- NOTE | 2020-12-17 08:03 | Hospitalist Progress Note ---
Date of Service December 17, 2020 Assessment & Plan (1) Lumbar disc herniation with radiculopathy: Parish Kerns is a 70 y/o M w/ hx of L4-L5 disc disease, sarcoidosis, and COPD who presents w/ exacerbation of R hip and sciatic type pain. POD2, appropriate. R sciatica and lumbar radiculopathy - acute on chronic exacerbation, worsened x 1 month after lifting heavy case of water - spine injection ~5 days ago w/o lasting relief - symptoms described consistent w/ sciatica Patient does not have any red flag signs such as saddle anesthesia, bowel or bladder incontinence, foot drop, or weight loss. Patient notes he had spine imaging at [facility] Dr. Bobby is in possession of these images. These have been reviewed by Dr. Bobby, ortho, per his note. Decadron IV provided in ED -12/14/19: IV morphine 3 mg q3hprn. zofran IV. IV tylenol 1000 mg q8h lana. NPO after midnight. -12/15/20 lumbar decompression fusion L4-5 and L5-S1 procedure performed by Dr. Bobby: #1 lumbar decompression bilateral medial facetectomies and foraminotomies L3-4, L4-5 L5-S1. #2 posterior spinal fusion L4-5 L5-S1 peer #3 placement posterior instrumentation L4-5 L5-S1. Before interbody fusion L4-5 #5 placed a peek cage 12 x 26 mm at L4-5. #6 placement of locally harvested morselized autograft in t he posterior gutters per #7 placement infuse collagen sponge, master graft in the posterior gutters and ostial amp and interbody space. -dexamethasone IV 8mg daily - oxycodone 5-10 q4hprn for pain control - physical therapy - monitor ALMA output - per ortho, likely discharge home 12/18/20 sarcoidosis - home azathioprine 50 mg PO daily, prednisone 10 mg PO daily restarted COPD - home Anoro Ellipta, Ventolin, and Atrovent HLD - home pravastatin, will restart HTN - home losartan, will restart depression - home fluoxetine, will restart snoring - outpatient eval for sleep apnea FEN/GI: regular. no mIVF DVT ppx: SCDs code: full dispo: med/surg, possible dispo home 12/17 depending on surgery recovery (2) Sarcoidosis of lung: (3) Intractable back pain: (4) Sciatica of right side: (5) Obesity: (6) Chronic dyspnea: (7) HLD (hyperlipidemia): Admission and Anticipated Discharge Date Admission Date: December 13, 2020 Supervising Physician Co-Signing Physician Notes I personally examined the patient and verified all cornelius points of history and exam, discussed case, and agree with decision making with Dr Thomas. pain doing better. still up and walking a lot. hopeful for home tomorrow vitals noted nad heent nc at mmm walking w walker no gait abnormalities. ALMA drain w serosanguanous output lumbar radic - doing well post op. pain control, supportive care, PT/OT, hopefully home tomorrow snoring - possible BOAZ - outpt w/u - sleep study in near but not emergent future otherwise as above Subjective 7/10 soreness at lower back. No numbness/tingling. No hip or leg complaints.+ flatus. no BM. Has been ambulating. Eating ok. Oxycodone is helping Review of Systems Review of Systems: Constitutional: Denies fever, chills Eyes: Denies blurry vision, vision changes Cardiovascular: Denies chest pain, palpitations Respiratory: Denies shortness of breath Gastrointestinal: Denies abdominal pain, nausea, vomiting, constipation, diarrhea Genitourinary: Denies urinary symptoms including dysuria Musculoskeletal: Denies weakness, muscle aches/pain, joint aches/pain Neurological: Denies headache, numbness, tingling, focal weakness Physical Exam Physical Exam: General: Grossly A&O. NAD. Cooperative. HEENT: Atraumatic, normocephalic. Pulm: CTAB. -wheezes, -rales, -rhonchi. No respiratory distress. Cardiac: RRR, -mrg. 1+ pedal edema Abdominal: Nontender, nondistended, soft. back. bandaged, c/d/i. L ALMA serosanguinous, half full. 50 cc. G/U: no morton Neuro: moving all extermities grossly Results & Data Results & Data ([facility]) Vital Signs (Past 12 Hours) Vital Signs Temp Pulse Resp BP BP Pulse Ox 12/17/20 07:35 103 H 22 97 12/17/20 06:57 36.5 C 62 19 159/91 H 94 12/16/20 22:57 36.7 C 76 16 159/89 H 96
[2020-12-17] MEDS: allopurinoL 100 MG TAB PO SCH (08:27)
[2020-12-17] MEDS: DEXAMETHASONE SOD PHOSPHATE 8 MG in SYRINGE 0 ML IV SCH (08:27)
[2020-12-17] MEDS: azaTHIOprine 50 MG TAB PO SCH (08:27)
[2020-12-17] MEDS: UMECLIDINIUM/VILANTEROL 62.5/25MCG 7 PUFFS/INHALER INH SCH (08:28)
[2020-12-17] MEDS: PRAVASTATIN SOD 40 MG TAB PO SCH (09:45)
[2020-12-17] MEDS: LOSARTAN POTASSIUM 25 MG TAB PO SCH (09:45)
[2020-12-17] MEDS: FLUoxetine HCL 10 MG CAP PO SCH (09:45)
[2020-12-17] MEDS: TOPIRAMATE 25 MG TAB PO SCH (09:45)
--- NOTE | 2020-12-17 10:26 | Orthopedic Progress Note ---
Date of Service December 17, 2020 Assessment & Plan (1) Sciatica of right side: Admission and Anticipated Discharge Date Admission Date: December 13, 2020 This time continue physical therapy monitor his ALMA output anticipate discharge home tomorrow. Subjective Back pain controlled leg symptoms markedly improved. Physical Exam Physical Exam: Patient has good strength testing is sitting in the chair at the bedside. Appears comfortable. Results & Data ([facility]) Vital Signs (Past 12 Hours) Vital Signs Temp Pulse Resp BP BP Pulse Ox 12/17/20 07:35 103 H 22 97 12/17/20 06:57 36.5 C 62 19 159/91 H 94 12/16/20 22:57 36.7 C 76 16 159/89 H 96
--- NOTE | 2020-12-17 18:40 | Billing Data ---
Date of Service December 17, 2020 Coding Level of Care Code 20286 Subseq Hosp Care Lvl 1
[2020-12-17] MEDS: DOCUSATE SODIUM/SENNA 50/8.6MG TAB PO SCH (21:14)
[2020-12-18] MEDS: POLYETHYLENE (MIRALAX) 17 GM PACK PO SCH ×2 (00:13→05:52)
[2020-12-18] MEDS: oxyCODONE HCL IR 5 MG TAB (IMMEDIATE RELEASE) PO PRN ×2 (05:57→10:07)
[2020-12-18] MEDS: Albuterol HFA 8 GM Inhaler (Combivent Respimat P&T Subs) INH SCH (07:29)
[2020-12-18] MEDS: Ipratropium HFA Inhaler (Combivent Respimat P&T Subs) INH SCH (07:29)
[2020-12-18] MEDS: azaTHIOprine 50 MG TAB PO SCH (08:22)
[2020-12-18] MEDS: FLUoxetine HCL 10 MG CAP PO SCH (08:22)
[2020-12-18] MEDS: TOPIRAMATE 25 MG TAB PO SCH (08:22)
[2020-12-18] MEDS: allopurinoL 100 MG TAB PO SCH (08:22)
[2020-12-18] MEDS: DEXAMETHASONE SOD PHOSPHATE 8 MG in SYRINGE 0 ML IV SCH (08:22)
[2020-12-18] MEDS: LOSARTAN POTASSIUM 25 MG TAB PO SCH (08:22)
[2020-12-18] MEDS: PRAVASTATIN SOD 40 MG TAB PO SCH (08:24)
[2020-12-18] MEDS: UMECLIDINIUM/VILANTEROL 62.5/25MCG 7 PUFFS/INHALER INH SCH (08:27)
[2020-12-18 09:04] LABS: Hematocrit (blood only) 40.2 % (42-52); Hemoglobin 13.8 g/dL (14.0-18.0); Mean Corpuscular Hemoglobin 30.9 pg (25-34); Mean Corpuscular Hgb Conc 34.3 g/dL (32-36); Mean Corpuscular Volume 89.9 fL (80-100); Platelet Count 370 K/uL (130-400); RDW Coefficient of Variation 13.3 % (11.5-14.5); RDW Standard Deviation 43.7 fL (36.4-46.3); Red Blood Count 4.47 M/uL (4.7-6.1); White Blood Count 14.69 K/uL (4.8-10.8)
--- NOTE | 2020-12-18 09:18 | Hospitalist Progress Note ---
Date of Service December 18, 2020 Assessment & Plan (1) Lumbar disc herniation with radiculopathy: Parish Kerns is a 70 y/o M w/ hx of L4-L5 disc disease, sarcoidosis, and COPD who presents w/ exacerbation of R hip and sciatic type pain. POD3, appropriate. f/u sandy for xray in couple wks. all set up. outpatient espinoza f/u R sciatica and lumbar radiculopathy - acute on chronic exacerbation, worsened x 1 month after lifting heavy case of water - spine injection ~5 days ago w/o lasting relief - symptoms described consistent w/ sciatica Patient does not have any red flag signs such as saddle anesthesia, bowel or bladder incontinence, foot drop, or weight loss. Patient notes he had spine imaging at [facility] Dr. Bobby is in possession of these images. These have been reviewed by Dr. Bobby, ortho, per his note. Decadron IV provided in ED -12/14/19: IV morphine 3 mg q3hprn. zofran IV. IV tylenol 1000 mg q8h lana. NPO after midnight. -12/15/20 lumbar decompression fusion L4-5 and L5-S1 procedure performed by Dr. Bobby: #1 lumbar decompression bilateral medial facetectomies and foraminotomies L3-4, L4-5 L5-S1. #2 posterior spinal fusion L4-5 L5-S1 peer #3 placement posterior instrumentation L4-5 L5-S1. Before interbody fusion L4-5 #5 placed a peek cage 12 x 26 mm at L4-5. #6 placement of locally harvested morselized autograft in the posterior gutters per #7 placement infuse collagen sponge, master graft in the posterior gutters and ostial amp and interbody space. -dexamethasone IV 8mg daily - oxycodone 5-10 q4hprn for pain control - physical therapy - monitor ISMAEL output - per ortho, likely discharge home 12/18/20 sarcoidosis - home azathioprine 50 mg PO daily, prednisone 10 mg PO daily restarted COPD - home Anoro Ellipta, Ventolin, and Atrovent HLD - home pravastatin, will restart HTN - home losartan, will restart depression - home fluoxetine, will restart snoring - outpatient eval for sleep apnea FEN/GI: regular. no mIVF DVT ppx: SCDs code: full dispo: med/surg, possible dispo home 12/17 depending on surgery recovery (2) Sarcoidosis of lung: (3) Intractable back pain: (4) Sciatica of right side: (5) Obesity: (6) Chronic dyspnea: (7) HLD (hyperlipidemia): Admission and Anticipated Discharge Date Admission Date: December 13, 2020 Subjective Tired. Pain (at lower back) level 4-5, worse w/ movement (sharp). Pain is intermittent. Eating, urinating, bm ok. Review of Systems Review of Systems: Constitutional: Denies fever, chills Eyes: Denies blurry vision, vision changes ENT: Denies sore throat, sinus pain Cardiovascular: Denies chest pain, palpitations Respiratory: Denies shortness of breath Gastrointestinal: Denies abdominal pain, nausea, vomiting, constipation, diarrhea Genitourinary: Denies urinary symptoms including dysuria Musculoskeletal: Denies weakness. Back pain, see HPI Neurological: Denies headache, numbness, tingling, focal weakness Physical Exam Physical Exam: General: Grossly A&O. NAD. Cooperative. HEENT: Atraumatic, normocephalic. Pulm: CTAB. -wheezes, -rales, -rhonchi. No respiratory distress. Cardiac: RRR, -mrg. Abdominal: Nontender, nondistended, soft. Back: ISMAEL drain at midline. bandage c/d/i, w/ some dried blood near bottom where ismael drain exits Results & Data Results & Data ([facility]) Vital Signs (Past 12 Hours) Vital Signs Temp Pulse Resp BP Pulse Ox 12/18/20 08:05 36.5 C 78 19 147/81 H 95 12/18/20 07:30 77 16 95 12/17/20 22:42 36.4 C L 92 H 16 146/83 H 95
[2020-12-18 09:33] LABS: Calcium 9.7 mg/dl (8.5-10.1); Creatinine Clr Calc Pharmacy 88.9 ml/min; Est GFR (African American) 83.5; Est GFR (Non-African American) 72.1; Potassium 3.9 mmol/L (3.5-5.1)
--- NOTE | 2020-12-18 09:48 | Discharge Summary ---
Date of Service December 18, 2020 Admission HPI Per Admitting Provider This is a 70-year-old male who presented to [facility] emergency department at the recommendation of his spine surgeon. Patient notes that approximately 2 weeks ago he went to lift something up. He said that it was not observantly heavy but almost immediately after lifting up an object he felt a burning pain down his right leg. He notes that he had an MRI of his spine performed at [facility] which has been reviewed by his orthopedic spine surgeon at [facility]. Approximate 5 days ago they gave him a spine injection which did not help and he was told that he may need surgery. As his pain has not been getting any better he was referred to the emergency department. The patient denies any fevers, shakes, chills, or night sweats. He denies weight loss. He denies any loss of bowel or bladder function. He denies any saddle anesthesia. He says with his day-to-day life when he is feeling well he is somewhat active. He denies chest pain with his daily activities but notes he does have chronic dyspnea on exertion related to sarcoidosis. He notes his sarcoidosis is followed by physician at [facility]. He has not had any recent falls or head injuries. He is not diabetic. In the emergency department a CBC revealed a white blood cell count of 14.2. Hemoglobin and hematocrit were in the normal range. Platelet count was elevated at 430,000. Chemistry profile showed sodium was 134 potassium was within the normal range. His creatinine was normal at 1.0. Covid test was performed and was noted to be negative. The treating emergency room physician has given 10 mg of IV Decadron and 0.5 mg of Dilaudid which has provided some relief. At the time of my exam patient was in no distress. Principal Diagnosis Lumbar spinal stenosis with radiculopathy Discharge Data Allergies Allergy/AdvReac Type Severity Reaction Status Date / Time latex Allergy Intermediate BLISTERS Verified 12/15/20 09:18 Consultations 12/13/20 20:04 ED Decision to Admit Stat 12/13/20 22:03 Consult Orthopedic Surgery Stat 12/14/20 08:17 Consult Anesthesiology Routine 12/15/20 14:15 Consult Case Management - Discharge Planning Routine Procedures Performed Operation Date: 12/15/20 11:10 Actual Procedures p L4-L5, L5-S1 Lumbar Decompression and Fusion, Interbody L4-5 with bone m orphogenic protein and spinal cord monitoring(Not Applicable) - Bhavesh Bobby DO Ordered Studies 12/15/20 11:10 FL fluoroscopy <1hr Routine FL lumbar spine 2-3V Routine Hospital Course (1) Lumbar disc herniation with radiculopathy: Patient was met in the hospital severe back and leg symptoms with inability ambulate. Underwent urgent decompression fusion tolerated this well was taken to the orthopedic floor postoperative. Postop day #1 he was up and a mbulating leg symptoms improved progressed to postop day #2 on postop day #3 his ALMA drainage decreased probably extra strength testing pain well controlled subsequent discharge home. Discharge orders instructions from the chart for further review. Total Time Total Time Spent Total Time Spent (In Minutes): 20 minutes Discharge Plan Discharge Items Patient Disposition: Home - Self-Care Reason For Visit: BACK PAIN Discharge Diagnosis: Lumbar spinal stenosis with radiculopathy Activity: As commented below Non-emergency contact: Primary Care Provider Call non-emergency contact if: you have any medication questions Follow-up/Referrals: Adelfo Pollard MD [Primary Care Provider] - Diet: Regular Addtl Attending Provider Instructions: ACTIVITY RECOMMENDATIONS: SELF CARE INSTRUCTIONS AFTER THORACIC/LUMBAR FUSIONS 1. You may walk to your tolerance. It is good exercise for your legs and back. Expect some back and intermittent leg aches and pains. 2. You may perform "counter-top" level activities (make a sandwich, gus with a project, etc.). 3. No bending or lifting of more than 10 pounds or back twisting of any nature (roll like a log when turning in bed). 4. You may ride in a car for 20-30 minutes at a time. No driving until after your first visit with your doctor. 5. Frequent changes of position and restricting sitting to 30 minutes at a time will help limit the amount of back spasms and stiffness you may experience. 6. You may discontinue the use of ambulatory aids (cane, crutches, etc.) once your strength and confidence allow. 7. You may machine scallop cutter the shower and let water strike your incision when you arrive home at least once daily. Do not take a tub bath, sit in a hot tub or go into a swimming pool until after your first recheck in the office. SPECIAL CARE INSTRUCTIONS: VERY IMPORTANT TO READ AND REVIEW A. Your surgical incision has been closed with a cosmetic suture under the skin that will dissolve in about 6 weeks. In 14 days, you can use a pair of clean scissors and cut the suture that is left outside of the skin at the ends of your incision. 1. The small skin tapes can be removed 7 days after surgery if they have not fallen off by that point. 2. You may keep the wound open to air as much as possible to promote healing after post-op day number 5 unless told otherwise by your doctor. 3. If you think the wound looks like it is becoming infected (redness or worsening drainage) and/or you are experiencing fever, chill or worsening back pain and muscle spasms, contact the office so that we may evaluate you as soon as possible. B. Complications are uncommon, but please contact us if you have any signs or symptoms of: 1. wound infection (fever higher than 102.5 degrees F, redness, separation of wound, drainage, or increasing pain from the incision) 2. blood clots in legs (pain, swelling, redness and warmth in legs) 3. urinary tract infection (fever higher than 102.5 degrees F, burning upon urination or increased frequency of urination) 4. nerve problems (inability to walk on your toes or heels, numbness, loss of bowel or bladder control) 5. any other symptoms that concern you C. Please call the office at if you have any concerns or questions about your operation or recovery. D. No smoking! Smoking drastically decreases the chance of a solid fusion. E. Do not take any anti-inflammatory medications (Indocin, Advil, Motrin, Aspirin, Naprosyn, etc.) as these may inhibit the chance of a solid fusion. Tylenol is okay to take for pain. MANAGING PAIN AFTER SPINAL SURGERY 1. Narcotic medication is intended for short-term use and will be provided for surgical pain. Surgical pain usually lasts for a period of 4-6 weeks. Narcotic medication includes Percocet, Vicodin, Darvocet, Tylenol #3 or Lortab. 2. Longer-term pain is more appropriately treated with non-narcotic medication such as Tylenol ES. 3. Muscle spasm is not appropriately treated with narcotics. Muscle relaxers such as Soma, Flexeril or Skelaxin can be used along with Tylenol ES. 4. Remember that we all live with some "aches and pains". This is not unusual or uncommon after an injury or as we get older. a. Back pain is expected and may include muscle spasms for 4 to 6 weeks after surgery. The pain should gradually improve. If the pain worsens for no apparent reason, please contact the office. b. Intermittent leg pain may also be experienced and should not be concerned about unless it worsens for no apparent reason. If so, please contact the office. 5. We will provide appropriate medication within the normal guidelines of their prescribed use. We will also be very cautious and aware of potential abuse and extended duration of patients' medication needs. a. Pain medications are for your comfort and to assist with sleep and rest so that the tissue can heal. They are not provided in order to return to normal activity and should not be used through the day. To do so or worsening pain at night can result from ongoing tissue damage and development of tolerance to the prescribed medicine. 6. Please allow 2-3 days to process refills. Prescriptions will not be mailed but must be picked up at the office. FOLLOW UP VISIT: Keep your scheduled follow-up appointment. Any questions, please call the office at . Pending Studies at Discharge: No Stand-Alone Forms: My [facility], Smoking Cessation Medications and DC Order Prescriptions: New tramadol 50 mg tablet 50 mg PO Q6H PRN (Reason: pain, moderate) Qty: 30 RF: 0 oxycodone 5 mg tablet 5 mg PO Q6H PRN (Reason: pain, severe) Qty: 20 RF: 0 Continued cyclobenzaprine 5 mg tablet 5 mg PO BID PRN (Reason: Spasms) RF: 0 Anoro Ellipta 62.5-25 mcg/actuation blister with device 1 inh INHALATION DAILY RF: 0 Combivent Respimat 20-100 mcg/actuation mist 1 puff INHALATION BID RF: 0 azathioprine 50 mg tablet 50 mg PO DAILY RF: 0 albuterol sulfate 90 mcg/actuation Hfa Aerosol Inhaler 2 puff INHALATION QID PRN (Reason: Shortness Of Breath Or Wheezing) RF: 0 fluoxetine 20 mg capsule 20 mg PO DAILY RF: 0 losartan 25 mg tablet 25 mg PO DAILY RF: 0 allopurinol 100 mg tablet 100 mg PO DAILY RF: 0 prednisone 10 mg tablet 10 mg PO DAILY RF: 0 topiramate 25 mg tablet 25 mg PO DAILY RF: 0 pravastatin 40 mg tablet 40 mg PO DAILY RF: 0 Discontinued methylprednisolone 4 mg tablets,dose pack 0 mg PO .UD RF: 0 Discharge Orders: Discharge Order (Routine); Ordered 12/18/20 Ordered By: Bhavesh Bobby Admission Data Admit Date/Time: 12/13/20 20:02 Attending Provider: John Rodríguez Admit Provider: Jarrell Bledsoe Primary Care Provider: Adelfo Plolard Other Providers: Albert Thomas ; Jarrell Bledsoe ; Bhavesh Bobby ; Alvaro Woodward
--- NOTE | 2020-12-18 12:20 | Discharge Summary ---
Date of Service December 18, 2020 Admission HPI Per Admitting Provider This is a 70-year-old male who presented to [facility] emergency department at the recommendation of his spine surgeon. Patient notes that approximately 2 weeks ago he went to lift something up. He said that it was not observantly heavy but almost immediately after lifting up an object he felt a burning pain down his right leg. He notes that he had an MRI of his spine performed at [facility] which has been reviewed by his orthopedic spine surgeon at [facility]. Approximate 5 days ago they gave him a spine injection which did not help and he was told that he may need surgery. As his pain has not been getting any better he was referred to the emergency department. The patient denies any fevers, shakes, chills, or night sweats. He denies weight loss. He denies any loss of bowel or bladder function. He denies any saddle anesthesia. He says with his day-to-day life when he is feeling well he is somewhat active. He denies chest pain with his daily activities but notes he does have chronic dyspnea on exertion related to sarcoidosis. He notes his sarcoidosis is followed by physician at [facility]. He has not had any recent falls or head injuries. He is not diabetic. In the emergency department a CBC revealed a white blood cell count of 14.2. Hemoglobin and hematocrit were in the normal range. Platelet count was elevated at 430,000. Chemistry profile showed sodium was 134 potassium was within the normal range. His creatinine was normal at 1.0. Covid test was performed and was noted to be negative. The treating emergency room physician has given 10 mg of IV Decadron and 0.5 mg of Dilaudid which has provided some relief. At the time of my exam patient was in no distress. Admission Exam Per Admitting Provider Constitutional: well developed and well nourished; no acute distress Eyes: PERRL; no conjunctival abnormality ENMT: Ears: no hearing impairment Neck: trachea midline Respiratory: normal respiratory effort; no respiratory distress and no labored breathing Cardiovascular: Rate/Rhythm: regular rate and regular rhythm Gastrointestinal (Abdomen): Percussion/Palpation: abdomen soft; abdomen nontender Well-healed midline incision noted. A ventral hernia is noted. There is no pain with palpation Musculoskeletal: No gross orthopedic abnormalities are noted. No calf tenderness. Skin: normal turgor Neurologic: CN's II-XI intact bilaterally and moves all extremities The patient had 5+ strength bilaterally with dorsiflexion, plantar flexion, and great toe extension. He had intact sensation to sharp and light touch in all dermatomes in his extremities. He was able to lift both legs off the bed without difficulty. Psychiatric: A+Ox3, euthymic affect Principal Diagnosis lumbar radiculopathy Discharge Exam General: Grossly A&O. NAD. Cooperative. HEENT: Atraumatic, normocephalic. Pulm: CTAB. -wheezes, -rales, -rhonchi. No respiratory distress. Cardiac: RRR, -mrg. Abdominal: Nontender, nondistended, soft. Back: ISMAEL drain at midline. bandage some dried blood near bottom where ismael drain exits, otherwise c/d/i. ISMAEL drain removed prior to dispo home. Neuro: Grossly moving all extremities. Discharge Data Allergies Allergy/AdvReac Type Severity Reaction Status Date / Time latex Allergy Intermediate BLISTERS Verified 12/15/20 09:18 Consultations 12/13/20 20:04 ED Decision to Admit Stat 12/13/20 22:03 Consult Orthopedic Surgery Stat 12/14/20 08:17 Consult Anesthesiology Routine 12/15/20 14:15 Consult Case Management - Discharge Planning Routine Procedures Performed Operation Date: 12/15/20 11:10 Actual Procedures p L4-L5, L5-S1 Lumbar Decompression and Fusion, Interbody L4-5 with bone morphogenic protein and spinal cord monitoring(Not Applicable) - Bhavesh Bobby, Ordered Studies 12/15/20 11:10 FL fluoroscopy <1hr Routine FL lumbar spine 2-3V Routine Hospital Course (1) Lumbar disc herniation with radiculopathy: Parish Kerns is a 70 y/o M w/ hx of L4-L5 disc disease, sarcoidosis, and COPD who presented to [facility] w/ exacerbation of R hip and sciatic type pain. During this admission, orthopedics performed a lumbar decompression fusion L4-5 and L5-S1 procedure. - outpatient f/u and imaging w/ Dr. Bobby orthopedics R sciatica and lumbar radiculopathy - acute on chronic exacerbation, worsened x 1 month after lifting heavy case of water - spine injection ~5 days ago w/o lasting relief - symptoms described consistent w/ sciatica Patient does not have any red flag signs such as saddle anesthesia, bowel or bladder incontinence, foot drop, or weight loss. Patient notes he had spine imaging at [facility] Dr. Bobby is in possession of these images. These have been reviewed by Dr. Bobby, ortho, per his note. Decadron IV provided in EDt. -12/15/20 lumbar decompression fusion L4-5 and L5-S1 procedure performed by Dr. Bobby: #1 lumbar decompression bilateral medial facetectomies and foraminotomies L3-4, L4-5 L5-S1. #2 posterior spinal fusion L4-5 L5-S1 peer #3 placement posterior instrumentation L4-5 L5-S1. Before interbody fusion L4-5 #5 placed a peek cage 12 x 26 mm at L4-5. #6 placement of locally harvested morselized autograft in the posterior gutters per #7 placement infuse collagen sponge, master graft in the posterior gutters and ostial amp and interbody space. - ismael drain removed upon discharge home snoring - outpatient eval for sleep apnea, nonurgent code: full (2) Sarcoidosis of lung: (3) Intractable back pain: (4) Sciatica of right side: (5) Obesity: (6) Chronic dyspnea: (7) HLD (hyperlipidemia): Total Time Total Time Spent Total Time Spent (In Minutes): <30 Discharge Plan Discharge Items Patient Disposition: Home - Self-Care Reason For Visit: BACK PAIN Discharge Diagnosis: Lumbar spinal stenosis with radiculopathy Activity: As commented below Non-emergency contact: Primary Care Provider Call non-emergency contact if: you have any medication questions Follow-up/Referrals: Adelfo Pollard MD [Primary Care Provider] - Diet: Regular Addtl Attending Provider Instructions: ACTIVITY RECOMMENDATIONS: SELF CARE INSTRUCTIONS AFTER THORACIC/LUMBAR FUSIONS 1. You may walk to your tolerance. It is good exercise for your legs and back. Expect some back and intermittent leg aches and pains. 2. You may perform "counter-top" level activities (make a sandwich, gus with a project, etc.). 3. No bending or lifting of more than 10 pounds or back twisting of any nature (roll like a log when turning in bed). 4. You may ride in a car for 20-30 minutes at a time. No driving until after your first visit with your doctor. 5. Frequent changes of position and restricting sitting to 30 minutes at a time will help limit the amount of back spasms and stiffness you may experience. 6. You may discontinue the use of ambulatory aids (cane, crutches, etc.) once your strength and confidence allow. 7. You may inspector fabric the shower and let water strike your incision when you arrive home at least once daily. Do not take a tub bath, sit in a hot tub or go into a swimming pool until after your first recheck in the office. SPECIAL CARE INSTRUCTIONS: VERY IMPORTANT TO READ AND REVIEW A. Your surgical incision has been closed with a cosmetic suture under the skin that will dissolve in about 6 weeks. In 14 days, you can use a pair of clean scissors and cut the suture that is left outside of the skin at the ends of your incision. 1. The small skin tapes can be removed 7 days after surgery if they have not fallen off by that point. 2. You may keep the wound open to air as much as possible to promote healing after post-op day number 5 unless told otherwise by your doctor. 3. If you think the wound looks like it is becoming infected (redness or worsening drainage) and/or you are experiencing fever, chill or worsening back pain and muscle spasms, contact the office so that we may evaluate you as soon as possible. B. Complications are uncommon, but please contact us if you have any signs or symptoms of: 1. wound infection (fever higher than 102.5 degrees F, redness, separation of wound, drainage, or increasing pain from the incision) 2. blood clots in legs (pain, swelling, redness and warmth in legs) 3. urinary tract infection (fever higher than 102.5 degrees F, burning upon urination or increased frequency of urination) 4. nerve problems (inability to walk on your toes or heels, numbness, loss of bowel or bladder control) 5. any other symptoms that concern you C. Please call the office at if you have any concerns or questions about your operation or recovery. D. No smoking! Smoking drastically decreases the chance of a solid fusion. E. Do not take any anti-inflammatory medications (Indocin, Advil, Motrin, Aspirin, Naprosyn, etc.) as these may inhibit the chance of a solid fusion. Tylenol is okay to take for pain. MANAGING PAIN AFTER SPINAL SURGERY 1. Narcotic medication is intended for short-term use and will be provided for surgical pain. Surgical pain usually lasts for a period of 4-6 weeks. Narcotic medication includes Percocet, Vicodin, Darvocet, Tylenol #3 or Lortab. 2. Longer-term pain is more appropriately treated with non-narcotic medication such as Tylenol ES. 3. Muscle spasm is not appropriately treated with narcotics. Muscle relaxers such as Soma, Flexeril or Skelaxin can be used along with Tylenol ES. 4. Remember that we all live with some "aches and pains". This is not unusual or uncommon after an injury or as we get older. a. Back pain is expected and may include muscle spasms for 4 to 6 weeks aft er surgery. The pain should gradually improve. If the pain worsens for no apparent reason, please contact the office. b. Intermittent leg pain may also be experienced and should not be concerned about unless it worsens for no apparent reason. If so, please contact the office. 5. We will provide appropriate medication within the normal guidelines of their prescribed use. We will also be very cautious and aware of potential abuse and extended duration of patients' medication needs. a. Pain medications are for your comfort and to assist with sleep and rest so that the tissue can heal. They are not provided in order to return to normal activity and should not be used through the day. To do so or worsening pain at night can result from ongoing tissue damage and development of tolerance to the prescribed medicine. 6. Please allow 2-3 days to process refills. Prescriptions will not be mailed but must be picked up at the office. FOLLOW UP VISIT: Keep your scheduled follow-up appointment. Any questions, please call the office at . Pending Studies at Discharge: No Stand-Alone Forms: My [facility]utizer, Opioid Pain Management, Smoking Cessation Medications and DC Order Prescriptions: New tramadol 50 mg tablet 50 mg PO Q6H PRN (Reason: pain, moderate) Qty: 30 RF: 0 oxycodone 5 mg tablet 5 mg PO Q6H PRN (Reason: pain, severe) Qty: 20 RF: 0 Continued cyclobenzaprine 5 mg tablet 5 mg PO BID PRN (Reason: Spasms) RF: 0 Anoro Ellipta 62.5-25 mcg/actuation blister with device 1 inh INHALATION DAILY RF: 0 Combivent Respimat 20-100 mcg/actuation mist 1 puff INHALATION BID RF: 0 azathioprine 50 mg tablet 50 mg PO DAILY RF: 0 albuterol sulfate 90 mcg/actuation Hfa Aerosol Inhaler 2 puff INHALATION QID PRN (Reason: Shortness Of Breath Or Wheezing) RF: 0 fluoxetine 20 mg capsule 20 mg PO DAILY RF: 0 losartan 25 mg tablet 25 mg PO DAILY RF: 0 allopurinol 100 mg tablet 100 mg PO DAILY RF: 0 prednisone 10 mg tablet 10 mg PO DAILY RF: 0 topiramate 25 mg tablet 25 mg PO DAILY RF: 0 pravastatin 40 mg tablet 40 mg PO DAILY RF: 0 Discontinued methylprednisolone 4 mg tablets,dose pack 0 mg PO .UD RF: 0 Discharge Orders: Discharge Order (Routine); Ordered 12/18/20 Ordered By: Bhavesh Robins/Other Patient Handouts: Healthy Foods for the Whole Family Admission Data Admit Date/Time: 12/13/20 20:02 Attending Provider: John Rodríguez Admit Provider: Jarrell Bledsoe Primary Care Provider: Adelfo Pollard Other Providers: Albert Thomas ; Jarrell Bledsoe ; Bhavesh Bobby ; Alvaro Woodward Other Interventions: Discharge Summary Assessment (RN) Last Done: 12/18/20 10:23 Supervising Physician Co-Signing Physician Notes I personally examined the patient and verified all cornelius points of history and exam, discussed case, and agree with decision making with Dr Thomas. feels up to going home. vitals noted nad heent nc at mmm walking w walker no gait abnormalities. lumbar radic - doing well post op. stable for home, outpt f/u snoring - possible BOAZ - outpt w/u - sleep study in near but not emergent future otherwise as above Resident Activity Tracking Resident Involvement: Resident Care Provided Care Provided: Adult Hospital Medicine
--- NOTE | 2020-12-18 16:06 | Billing Data ---
Date of Service December 18, 2020 Coding Level of Care Code D/C Day Management <30 mins
== END 2020-12-18 13:09 | disposition home or self-care (01) | DRG 455 ==
LOC: ED 17:43 → 3N 20:02 → SUATTDRO 20:02 → 3N 21:29